=== PATIENT | male | born 1935 | race Caucasian/White ===

== ENCOUNTER 2017-06-10 12:58 | Inpatient (IN) | payer OTHER, BC ==
--- NOTE | 2017-06-10 13:56 | PDOC ---
History of Present Illness - History of Present Illness Initial Comments: 80-year-old male, history of CAD (s/p CABG 2 years prior), diabetes, Parkinson' s, ambulates with walker, presents with worsening gait disorder over the past few days and found down today by EMS. He has been progressively declining over the past two years since his CABG. The patient's was attempting to help him out of his chair earlier this morning and he was unable to stand up. He only occasionally follows commands and is only AO x2 at baseline but has been only AOx1 as of late. The son states that he originally called EMS only to help lift the patient into the chair but they brought him into the ED after getting some more history. Denies fevers, chills, chest pain, abdominal pain, urinary/ fecal incontinence. 06/10/17 17:06 <Frida Glaser - Last Filed: 06/10/17 20:10> <Richardson Talbot - Last Filed: 06/11/17 08:20> - General Chief Complaint: Injury Stated Complaint: AMS Time Seen by Provider: 06/10/17 13:31 Past History - Past Medical History Anemia: No Asthma: No Cancer: Yes (Colon Ca 1998) Cardiac Disorders: No CVA: No COPD: No CHF: No Dementia: No Diabetes: Yes (1981) GI Disorders: No Disorders: No HTN: Yes Hypercholesterolemia: Yes Liver Disease: No Seizures: No Thyroid Disease: No - Surgical History Abdominal Surgery: Yes (1998 Colon Resection) Appendectomy: No Cardiac Surgery: Yes (CABG 2014) Cholecystectomy: No Lung Surgery: No Neurologic Surgery: No Orthopedic Surgery: No - Immunization History Immunization Up to Date: Yes - Suicide/Smoking/Psychosocial Hx Smoking History: Unknown if ever smoked Have you smoked in the past 12 months: No Information on smoking cessation initiated: No Hx Alcohol Use: No Drug/Substance Use Hx: No Substance Use Type: None Hx Substance Use Treatment: No <Frida Glaser - Last Filed: 06/10/17 20:10> <Richardson Talbot - Last Filed: 06/11/17 08:20> - Past Medical History Allergies/Adverse Reactions: Allergies Allergy/AdvReac Type Severity Reaction Status Date / Time No Known Allergies Allergy Verified 03/14/16 13:33 Home Medications: Ambulatory Orders Metformin HCl [Glucophage -] 1,000 mg PO BID 02/11/12 Tamsulosin HCl [Flomax -] 0.4 mg PO DAILY 02/11/12 Simvastatin 40 mg PO HS #0 06/05/15 Acetaminophen [Tylenol] 650 mg PO Q6H #30 tablet 03/14/16 Carbidopa/Levodopa [Carbidopa-Levodopa 25-100 Tab] 1 each PO TID 03/14/16 Glimepiride [Amaryl -] 4 mg PO BID 03/14/16 Memantine HCl [Namenda Xr] 14 mg PO DAILY 03/14/16 Metoprolol Tartrate [Lopressor -] 50 mg PO BID 03/14/16 *Physical Exam - Vital Signs Last Vital Signs Temp Pulse Resp BP Pulse Ox 99.1 F 95 H 18 141/84 98 06/10/17 13:20 06/10/17 13:20 06/10/17 13:20 06/10/17 13:20 06/10/17 13:20 <Frida Glaser - Last Filed: 06/10/17 20:10> - Vital Signs Last Vital Signs Temp Pulse Resp BP Pulse Ox 97.4 F L 95 H 19 122/92 98 06/10/17 20:01 06/10/17 20:01 06/10/17 20:01 06/10/17 20:01 06/10/17 20:01 <Richardson Talbot - Last Filed: 06/11/17 08:20> ED Treatment Course - LABORATORY CBC & Chemistry Diagram: 06/10/17 14:25 06/10/17 14:25 <Frida Glaser - Last Filed: 06/10/17 20:10> - LABORATORY CBC & Chemistry Diagram: 06/10/17 14:25 06/10/17 14:25 - ADDITIONAL ORDERS Additional order review: Laboratory Results 06/10/17 06/10/17 06/10/17 17:20 14:48 14:25 PT with INR INR PTT (Actin FS) VBG pH POC VBG pCO2 POC VBG pO2 Mixed VBG HCO3 Sodium Potassium Chloride Carbon Dioxide Anion Gap BUN Creatinine Creat Clearance w eGFR Random Glucose Lactic Acid 1.7 Calcium Total Bilirubin AST ALT Alkaline Phosphatase Creatine Kinase Creatine Kinase Index CK-MB (CK-2) Troponin I Total Protein Albumin Urine Color Lt. yellow Urine Appearance Clear Urine pH 5.5 Ur Specific [place] 1.025 Urine Protein Negative Urine Glucose (UA) 3+ H Urine Ketones 2+ H Urine Blood Negative Urine Nitrite Negative Urine Bilirubin Negative Urine Urobilinogen 0.2 Ur Leukocyte Esterase Negative Blood Type A NEGATIVE Antibody Screen Negative 06/10/17 06/10/17 06/10/17 14:25 14:25 14:25 PT with INR INR PTT (Actin FS) VBG pH 7.40 POC VBG pCO2 47.9 POC VBG pO2 29.4 Mixed VBG HCO3 29.1 H Sodium 138 Potassium 4.4 Chloride 98 Carbon Dioxide 27 Anion Gap 13 BUN 16 Creatinine 0.7 Creat Clearance w eGFR > 60 Random Glucose 265 H D Lactic Acid 2.5 H* Calcium 9.2 Total Bilirubin 0.8 D AST 26 ALT 47 Alkaline Phosphatase 110 Creatine Kinase 543 H Creatine Kinase Index 0.4 CK-MB (CK-2) 2.645 Troponin I < 0.02 Total Protein 7.0 Albumin 3.7 Urine Color Urine Appearance Urine pH Ur Specific [place] Urine Protein Urine Glucose (UA) Urine Ketones Urine Blood Urine Nitrite Urine Bilirubin Urine Urobilinogen Ur Leukocyte Esterase Blood Type Antibody Screen 06/10/17 14:25 PT with INR 11.40 INR 1.01 PTT (Actin FS) 29.3 D VBG pH POC VBG pCO2 POC VBG pO2 Mixed VBG HCO3 Sodium Potassium Chloride Carbon Dioxide Anion Gap BUN Creatinine Creat Clearance w eGFR Random Glucose Lactic Acid Calcium Total Bilirubin AST ALT Alkaline Phosphatase Creatine Kinase Creatine Kinase Index CK-MB (CK-2) Troponin I Total Protein Albumin Urine Color Urine Appearance Urine pH Ur Specific [place] Urine Protein Urine Glucose (UA) Urine Ketones Urine Blood Urine Nitrite Urine Bilirubin Urine Urobilinogen Ur Leukocyte Esterase Blood Type Antibody Screen 06/10/17 14:25 RBC 5.02 MCV 92.7 MCHC 33.7 RDW 13.4 MPV 9.0 Neutrophils % 71.6 Lymphocytes % 18.6 D Monocytes % 9.0 Eosinophils % 0.2 Basophils % 0.6 - Medications Given in the ED: ED Medications Discontinued Medications Generic Name Dose Route Start Last Admin Trade Name Freq PRN Reason Stop Dose Admin Sodium Chloride 500 mls @ 500 mls/hr 06/10/17 17:04 06/10/17 17:06 Normal Saline - IV 06/10/17 18:03 500 mls/hr ASDIR STA Administration Sodium Chloride 500 ml 06/10/17 13:59 06/10/17 14:51 Normal Saline - IV 06/10/17 14:00 500 ml ONCE ONE Administration <Richardson Talbot - Last Filed: 06/11/17 08:20> *DC/Admit/Observation/Transfer <Frida Glaser - Last Filed: 06/10/17 20:10> - Discharge Dispostion Admit: Yes <Richardson Talbot - Last Filed: 06/11/17 08:20> Diagnosis at time of Disposition: Communicating hydrocephalus, Frequent falls
[2017-06-10] MEDS ORDERED: SODIUM CHLORIDE 0.9% 1000 ML INFUS.BAG IV ONE (13:59)
[2017-06-10 14:43] LABS: BASO % 0.6 % (0-2.0); EOS % 0.2 % (0-4.5); HEMATOCRIT 46.6 % (35.4-49); HEMOGLOBIN 15.7 GM/dL (11.7-16.9); LYMPH % 18.6 % (8-40); MCH 31.3 pg (25.7-33.7); MCHC 33.7 g/dl (32.0-35.9); MEAN CELL VOLUME 92.7 fl (80-96); NEUT % 71.6 % (42.8-82.8); PLATELET COUNT 155 K/MM3 (134-434); RBC 5.02 M/mm3 (4.00-5.60); RDW 13.4 % (11.9-15.9); WHITE BLOOD COUNT 9.5 K/mm3 (4.0-10.0)
[2017-06-10 14:45] LABS: VENOUS PC02 47.9 mmHg (38-52); VENOUS PH 7.4 (7.32-7.42); VENOUS PO2 29.4 mmHg (28-48)
[2017-06-10 14:52] LABS: INR 1.01 (0.82-1.09); PROTHROMBIN TIME (PATIENT) 11.4 SEC (9.98-11.88)
[2017-06-10 14:55] LABS: ACTIVATED PTT 29.3 SECONDS (26.9-34.4)
[2017-06-10 15:11] LABS: ALBUMIN 3.7 g/dl (3.4-5.0); ANION GAP 13 (8-16); BILIRUBIN,TOTAL 0.8 mg/dL (0.2-1.0); BLOOD UREA NITROGEN 16 mg/dL (7-18); CALCIUM 9.2 mg/dL (8.5-10.1); CHLORIDE 98 mmol/L (98-107); CO2 27 mmol/L (21-32); CREATININE 0.7 mg/dL (0.7-1.3); GLUCOSE,RANDOM 265 mg/dL (74-106); POTASSIUM 4.4 mmol/L (3.5-5.1); SGOT/AST 26 U/L (15-37); SGPT/ALT 47 U/L (12-78); SODIUM 138 mmol/L (136-145)
[2017-06-10 15:13] LABS: ALK PHOS 110 U/L (45-117)
[2017-06-10 15:37] LABS: PH,URINE 5.5 (5.0-8.0); URINE APPEARANCE CLEAR; URINE BILIRUBIN NEGATIVE (NEGATIVE); URINE BLOOD NEGATIVE (NEGATIVE); URINE COLOR LT. YELLOW; URINE GLUCOSE (UA) 3+ (NEGATIVE); URINE KETONE 2+ (NEGATIVE); URINE NITRITE NEGATIVE (NEGATIVE); URINE PROTEIN NEGATIVE (NEGATIVE); URINE UROBILINOGEN 0.2 mg/dL (0.2-1.0)
[2017-06-10] MEDS ORDERED: SODIUM CHLORIDE 500 ML IV STA (17:04)
[2017-06-10] MEDS ORDERED: HEMOQUE TEST 1 EACH EACH ONE (18:12)
--- NOTE | 2017-06-10 18:20 | PDOC ---
Attending Attestation - Resident Resident Name: Frida Glaser - ED Attending Attestation I have performed the following: I have examined & evaluated the patient, The case was reviewed & discussed with the resident, I agree w/resident's findings & plan, Exceptions are as noted - HPI HPI: 06/10/17 18:16 80-year-old male, history of CAD (s/p CABG 2 years prior), diabetes, Parkinson's , presents with left chest wall pain after falling 3 days ago. Pt also endorses pain in his left shoulder. He denies SOB. states that the patient fell in the bathtub 3 days ago. Pt denies lightheadedness/dizziness prior to fall. States that he tripped. Reports no head injury or LOC. Pt denies PONCE/N/V. Denies neck pain. Denies numbness/tingling/weakness in any extremity. The chest pain is not exertional or pleuritic and is reproducible with palpation. Pt denies any swelling in his legs, denies any prolonged immobility. No h/o DVT or PE. - Physicial Exam PE: 06/10/17 18:25 "GENERAL: Awake, alert, and fully oriented, in no acute distress HEAD: No signs of trauma EYES: PERRLA, EOMI, sclera anicteric, conjunctiva clear ENT: Auricles normal inspection, hearing grossly normal, nares patent, oropharynx clear without exudates. Moist mucosa NECK: Nontender, no stepoffs, Normal ROM, supple, no lymphadenopathy, JVD, or masses LUNGS: Breath sounds equal, clear to auscultation bilaterally. No wheezes, and no crackles HEART: Regular rate and rhythm, normal S1 and S2, no murmurs, rubs or gallops CHEST: L chest wall tenderness without crepitus ABDOMEN: Soft, nontender, normoactive bowel sounds. No guarding, no rebound. No masses EXTREMITIES: L shoulder with tenderness over humerus shaft. Normal range of motion, no edema. No clubbing or cyanosis. NEUROLOGICAL: Cranial nerves II through XII intact. 5/5 strength and sensation in all extremities, Normal speech, normal gait SKIN: Warm, Dry, normal turgor, no rashes or lesions noted. " - Medical Decision Making 06/10/17 18:29 81 M with chest wall pain s/p trip and fall 3 days ago. 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 Will consult neurology for recommendations given abnormal CTH and pt's history of falls. Pt signed out to oncoming attending at 7PM, pending neurology consultation. Case discussed in detail with oncoming Emergency Physician including history, physical exam and ancillary studies. Oncoming Emergency Physician has assumed care for the patient and will complete the evaluation and treatment. Patient is aware of the plan. Heart Score/ECG Review - ECG Impressions Comment:: 06/10/17 18:27 NSR, no IMAN/STDs, TWI in V1-V2 seen on prior EKG. RBBB and LAFB present also seen on prior EKG. No [place] prolongation.
[2017-06-10 18:36] LABS: URINE LEUK ESTERASE Negative (NEGATIVE)
--- NOTE | 2017-06-10 21:21 | HP ---
CHIEF COMPLAINT: Difficulty Ambulating, Memory Impairment, Frequent Falls PCP: Dr. Leon Ortega HISTORY OF PRESENT ILLNESS: This is a 81 y/o man with a past medical history of CAD (CABG, 2015), DM, Parkinson's. Who presents to the ED from home with decreased gait, memory loss, and recent falls. Patient fell twice last week, most recent was in the bathtub 3 days ago. Per ED records and family- The patient's was attempting to help him out of his chair earlier this morning and he was unable to stand up. He only occasionally follows commands and is only AO x2 at baseline but has been only AOx1 as of late. The son states that he originally called EMS only to help lift the patient into the chair but they brought him into the ED after getting some more history. In the ED the patient reported having L-shoulder and LCW pain. During my exam patient denies SOB, CP and palpations. Patient denies fever, chills, cough, dizziness, PONCE, AP, N/V/D, constipation, dysuria ER course was notable for: (1) CT Head- no acute ICH, mass effects or midline shift. Ventriculomegaly out of proportion to the degree of loss, bowing of the corpus callosum, crowding of the sulci-vertex. Suspicious for a communicating hydrocephalus. Age related volume loss, moderate to severe microvascular ischemic changes (2) Xray L- Shoulder- neg fx or dislocation (3) Lactic Acid- 2.5~1.7 (post fluid bolus) Recent Travel: None PAST MEDICAL HISTORY: See HPI PAST SURGICAL HISTORY: CABG Social History: Smoking: Unknown Alcohol: Unknown Drugs: Unknown Lives with Family History: Unable to obtain Allergies No Known Allergies Allergy (Verified 03/14/16 13:33) HOME MEDICATIONS: Home Medications Medication Instructions Recorded Metformin HCl [Glucophage -] 1,000 mg PO BID 02/11/12 Tamsulosin HCl [Flomax -] 0.4 mg PO DAILY 02/11/12 Simvastatin 40 mg PO HS #0 06/05/15 Acetaminophen [Tylenol] 650 mg PO Q6H #30 tablet 03/14/16 Carbidopa/Levodopa 1 each PO TID 03/14/16 [Carbidopa-Levodopa 25-100 Tab] Glimepiride [Amaryl -] 4 mg PO BID 03/14/16 Memantine HCl [Namenda Xr] 14 mg PO DAILY 03/14/16 Metoprolol Tartrate [Lopressor -] 50 mg PO BID 03/14/16 REVIEW OF SYSTEMS CONSTITUTIONAL: generalized weakness Absent: fever, chills, diaphoresis, malaise, loss of appetite, weight change HEENT: Absent: rhinorrhea, nasal congestion, throat pain, throat swelling, difficulty swallowing, mouth swelling, ear pain, eye pain, visual changes CARDIOVASCULAR: chest pain Absent: syncope, palpitations, irregular heart rate, lightheadedness, peripheral edema RESPIRATORY: Absent: cough, shortness of breath, dyspnea with exertion, orthopnea, wheezing, stridor, hemoptysis GASTROINTESTINAL: Absent: abdominal pain, abdominal distension, nausea, vomiting, diarrhea, constipation, melena, hematochezia GENITOURINARY: Absent: dysuria, frequency, urgency, hesitancy, hematuria, flank pain, genital pain MUSCULOSKELETAL: arthralgia, L-shoulder pain Absent: myalgia, joint swelling, back pain, neck pain SKIN: Absent: rash, itching, pallor HEMATOLOGIC/IMMUNOLOGIC: Absent: easy bleeding, easy bruising, lymphadenopathy, frequent infections ENDOCRINE: Absent: unexplained weight gain, unexplained weight loss, heat intolerance, cold intolerance NEUROLOGIC: unsteady gait, mental status changes Absent: headache, focal weakness or paresthesias, dizziness, unsteady gait, seizure, mental status changes, bladder or bowel incontinence PSYCHIATRIC: Absent: anxiety, depression, suicidal or homicidal ideation, hallucinations. PHYSICAL EXAMINATION Vital Signs - 24 hr 06/10/17 06/10/17 06/10/17 13:20 15:47 16:55 Temperature 99.1 F 98.9 F 98.7 F Pulse Rate 95 H 95 H Pulse Rate [ 79 Right Radial] Respiratory 18 18 Rate Blood Pressure 141/84 154/97 Blood Pressure 148/78 [Right Arm] O2 Sat by Pulse 98 100 98 Oximetry (%) 06/10/17 20:01 Temperature 97.4 F L Pulse Rate Pulse Rate [ 95 H Right Radial] Respiratory 19 Rate Blood Pressure Blood Pressure 122/92 [Right Arm] O2 Sat by Pulse 98 Oximetry (%) GENERAL: Awake, alert, and oriented to name/ only, in no acute distress. HEAD: Normal with no signs of trauma. EYES: Pupils equal, round and reactive to light, extraocular movements intact, sclera anicteric, No lid lag. conjunctiva injected, yellow crusting to eyelid, tearing EARS, NOSE, THROAT: Ears normal, nares patent, oropharynx clear without exudates. Dry mucous membranes. NECK: Normal range of motion, supple without lymphadenopathy, JVD, or masses. LUNGS: Breath sounds equal, clear to auscultation bilaterally. No wheezes, and no crackles. No accessory muscle use. HEART: Regular rate and rhythm, normal S1 and S2 without murmur, rub or gallop. ABDOMEN: Soft, nontender, not distended, normoactive bowel sounds, no guarding, no rebound, no masses. No hepatomegaly or splenomegaly. MUSCULOSKELETAL: Normal range of motion at all joints. No bony deformities or tenderness. No CVA tenderness. UPPER EXTREMITIES: 2+ pulses, warm, well-perfused. No cyanosis. No clubbing. No peripheral edema. LOWER EXTREMITIES: 2+ pulses, warm, well-perfused. No calf tenderness. No peripheral edema. NEUROLOGICAL: Cranial nerves II-XII intact. Slow-delay speech. Gait not observed. PSYCHIATRIC: Cooperative. Good eye contact. Appropriate mood and affect. SKIN: Warm, dry, normal turgor, normal capillary refill. redness to sacrum, rash to scrotum noted Laboratory Results - last 24 hr 06/10/17 06/10/17 06/10/17 14:25 14:25 14:25 WBC 9.5 D RBC 5.02 Hgb 15.7 Hct 46.6 MCV 92.7 MCH 31.3 MCHC 33.7 RDW 13.4 Plt Count 155 MPV 9.0 Neutrophils % 71.6 Lymphocytes % 18.6 D Monocytes % 9.0 Eosinophils % 0.2 Basophils % 0.6 PT with INR 11.40 INR 1.01 PTT (Actin FS) 29.3 D VBG pH 7.40 POC VBG pCO2 47.9 POC VBG pO2 29.4 Mixed VBG HCO3 29.1 H Sodium Potassium Chloride Carbon Dioxide Anion Gap BUN Creatinine Creat Clearance w eGFR Random Glucose Lactic Acid Calcium Total Bilirubin AST ALT Alkaline Phosphatase Creatine Kinase Creatine Kinase Index CK-MB (CK-2) Troponin I Total Protein Albumin Urine Color Urine Appearance Urine pH Ur Specific [place] Urine Protein Urine Glucose (UA) Urine Ketones Urine Blood Urine Nitrite Urine Bilirubin Urine Urobilinogen Ur Leukocyte Esterase Blood Type Antibody Screen 11/06/10/17 06/10/17 14:25 14:25 14:25 WBC RBC Hgb Hct MCV MCH MCHC RDW Plt Count MPV Neutrophils % Lymphocytes % Monocytes % Eosinophils % Basophils % PT with INR INR PTT (Actin FS) VBG pH POC VBG pCO2 POC VBG pO2 Mixed VBG HCO3 Sodium 138 Potassium 4.4 Chloride 98 Carbon Dioxide 27 Anion Gap 13 BUN 16 Creatinine 0.7 Creat Clearance w eGFR > 60 Random Glucose 265 H D Lactic Acid 2.5 H* Calcium 9.2 Total Bilirubin 0.8 D AST 26 ALT 47 Alkaline Phosphatase 110 Creatine Kinase 543 H Creatine Kinase Index 0.4 CK-MB (CK-2) 2.645 Troponin I < 0.02 Total Protein 7.0 Albumin 3.7 Urine Color Urine Appearance Urine pH Ur Specific [place] Urine Protein Urine Glucose (UA) Urine Ketones Urine Blood Urine Nitrite Urine Bilirubin Urine Urobilinogen Ur Leukocyte Esterase Blood Type A NEGATIVE Antibody Screen Negative 06/10/17 06/10/17 14:48 17:20 WBC RBC Hgb Hct MCV MCH MCHC RDW Plt Count MPV Neutrophils % Lymphocytes % Monocytes % Eosinophils % Basophils % PT with INR INR PTT (Actin FS) VBG pH POC VBG pCO2 POC VBG pO2 Mixed VBG HCO3 Sodium Potassium Chloride Carbon Dioxide Anion Gap BUN Creatinine Creat Clearance w eGFR Random Glucose Lactic Acid 1.7 Calcium Total Bilirubin AST ALT Alkaline Phosphatase Creatine Kinase Creatine Kinase Index CK-MB (CK-2) Troponin I Total Protein Albumin Urine Color Lt. yellow Urine Appearance Clear Urine pH 5.5 Ur Specific [place] 1.025 Urine Protein Negative Urine Glucose (UA) 3+ H Urine Ketones 2+ H Urine Blood Negative Urine Nitrite Negative Urine Bilirubin Negative Urine Urobilinogen 0.2 Ur Leukocyte Esterase Negative Blood Type Antibody Screen ASSESSMENT/PLAN: This is a 81 y/o man with a PMHx of: CAD (s/p CABG), DM, Parkinson's Disease. Admitted for Communicating Hydrocephalus, Difficulty Ambulating, Frequent Falls. 1. Communicating Hydrocephalus - Likely Idiopathic vs SAH vs Head Trauma vs Meningitis - CT Head reviewed - Appreciate Neurology Consult - Neuro checks - Fall precautions - NPO - Maintain HOB elevated 30 degrees 2. Difficulty Ambulating// Frequent Falls - See above - PT eval - Fall Precautions - Consider Subacute Rehab or SNF upon d/c 3. Lactic Acidemia - Likely Type B Lactic Acidosis - No Leukocytosis or neutrophilia - LA 2.5~1.7 - Hold Metformin 4. CAD - s/p CABG - Continue home meds with parameters - EKG reviewed - Trop I negx1 5. Chest Pain - Likely muscular vs Trauma secondary to falls - Serial Enzymes - EKG reviewed - Patient currently denies CP or SOB 6. L- Shoulder Pain - Xray L- shoulder- neg fx or dislocation - Continue supportive care 7. Diabetes Mellitus - Uncontrolled - BGMs - ISS - Hold Metformin secondary to Type B LA - Will hold home meds for tighter glycemic control - HgbA1C in am 8. Conjunctivitis - Likely bacterial vs viral vs allergic - Will treat empirically with Tobramycin 9. FEN - NS@42cc/hr - Replete lytes prn - NPO until cleared by Neuro 10. DVT Prophylaxis - SCDs - Heparin SQ Code Status: Full Code Dispo: Requires Inpatient Care Problem List - Problem (1) Communicating hydrocephalus Code(s): G91.0 - COMMUNICATING HYDROCEPHALUS (2) Frequent falls Code(s): R29.6 - REPEATED FALLS (3) Conjunctivitis Code(s): H10.9 - UNSPECIFIED CONJUNCTIVITIS (4) CAD (coronary artery disease) Code(s): I25.10 - ATHSCL HEART DISEASE OF [place] CORONARY ARTERY W/O ANG PCTRS (5) Afib Code(s): I48.91 - UNSPECIFIED ATRIAL FIBRILLATION (6) Anemia Code(s): D64.9 - ANEMIA, UNSPECIFIED (7) Diabetes Code(s): E11.9 - TYPE 2 DIABETES MELLITUS WITHOUT COMPLICATIONS (8) DVT prophylaxis Code(s): WVH4909 - Visit type - Emergency Visit Emergency Visit: Yes ED Registration Date: 06/10/17 Care time: The patient presented to the Emergency Department on the above date and was hospitalized for further evaluation of their emergent condition. - New Patient This patient is new to me today: Yes Date on this admission: 06/10/17 - Critical Care Critical Care patient: No
[2017-06-10] MEDS: HEPARIN NA (PORCINE) 5,000 UNITS/ML 1ML VIAL SQ SCH (22:54)
[2017-06-10] MEDS: ATORVASTATIN CA 20 MG TABLET (FP) PO SCH (22:55)
[2017-06-10] MEDS: METOPROLOL TARTRATE 50 MG TABLET (FP) PO SCH (22:55)
[2017-06-10] MEDS: CARBIDOPA/LEVODOPA 25/100 TABLET (FP) PO SCH (22:55)
[2017-06-11 03:58] VITALS: BMI 26.0
[2017-06-11] MEDS: CARBIDOPA/LEVODOPA 25/100 TABLET (FP) PO SCH ×3 (05:59→22:57)
[2017-06-11] MEDS: TOBRAMYCIN 0.3% OPHTH SOLN 5 ML BOTTLE OU SCH ×3 (06:40→17:59)
[2017-06-11] MEDS: SODIUM CHLORIDE 1,000 ML IV SCH (06:46)
[2017-06-11] MEDS: INSULIN SLIDING SCALE (NOVOLOG) 1 VIAL SQ SCH ×3 (06:47→17:21)
[2017-06-11 08:52] LABS: BASO % 0.9 % (0-2.0); EOS % 1.5 % (0-4.5); HEMATOCRIT 41.3 % (35.4-49); HEMOGLOBIN 14.3 GM/dL (11.7-16.9); LYMPH % 37.5 % (8-40); MCH 31.8 pg (25.7-33.7); MCHC 34.5 g/dl (32.0-35.9); MEAN CELL VOLUME 91.9 fl (80-96); MEAN PLT VOLUME 8.9 fl (7.5-11.1); MONO % 9.4 % (3.8-10.2); NEUT % 50.7 % (42.8-82.8); PLATELET COUNT 157 K/MM3 (134-434); RDW 12.9 % (11.9-15.9); WHITE BLOOD COUNT 7.2 K/mm3 (4.0-10.0)
[2017-06-11 09:09] LABS: ANION GAP 7 (8-16); BLOOD UREA NITROGEN 11 mg/dL (7-18); CALCIUM 8.4 mg/dL (8.5-10.1); CHLORIDE 100 mmol/L (98-107); CO2 30 mmol/L (21-32); GLUCOSE,RANDOM 234 mg/dL (74-106); MAGNESIUM 1.5 mg/dL (1.8-2.4); POTASSIUM 3.9 mmol/L (3.5-5.1); SODIUM 137 mmol/L (136-145)
[2017-06-11 09:10] LABS: CREATININE 0.6 mg/dL (0.7-1.3); PHOSPHOROUS 2.5 mg/dL (2.5-4.9)
[2017-06-11] MEDS: HEPARIN NA (PORCINE) 5,000 UNITS/ML 1ML VIAL SQ SCH ×2 (09:22→22:57)
[2017-06-11] MEDS: METOPROLOL TARTRATE 50 MG TABLET (FP) PO SCH ×2 (09:22→22:57)
[2017-06-11] MEDS: TAMSULOSIN HCL 0.4 MG CAP.ER.24H (FP) PO SCH (09:22)
[2017-06-11] MEDS ORDERED: PATIENT'S OWN MEDICATION (NON-FORMULARY) (Memantine Hcl [Namenda Xr] 14 MG) PO SCH (10:00)
[2017-06-11] MEDS ORDERED: PT OWN MED DRAWER 7, Y5N ONE (12:27)
--- NOTE | 2017-06-11 12:56 | EKG ---
Test Reason : Blood Pressure : / mmHG Vent. Rate : 091 BPM Atrial Rate : 091 BPM P-R Int : 178 ms QRS Dur : 136 ms QT Int : 414 ms P-R-T Axes : 062 -72 066 degrees QTc Int : 509 ms NORMAL SINUS RHYTHM POSSIBLE LEFT ATRIAL ENLARGEMENT RIGHT BUNDLE BRANCH BLOCK LEFT ANTERIOR FASCICULAR BLOCK BIFASCICULAR BLOCK LEFT VENTRICULAR HYPERTROPHY WITH REPOLARIZATION ABNORMALITY ABNORMAL ECG WHEN COMPARED WITH ECG OF 02-JUN-2015 04:25, NO SIGNIFICANT CHANGE WAS FOUND Confirmed by GUZMAN HERNANDEZ MD ([id number]) on 06/11/2017 12:56:12 PM Referred By: Confirmed By:GUZMAN HERNANDEZ MD
--- NOTE | 2017-06-11 13:28 | CONSULT ---
Admitting History and Physical - Primary Care Physician PCP: Taylor Leiva - Admission History of Present Illness: This is a 81 y/o man with a PMHx of: CAD (s/p CABG), DM, Parkinson's Disease. Admitted for Communicating Hydrocephalus, Difficulty Ambulating, Frequent Falls. Pt had swallowing tx at [facility] previously, and was on thickened liquids. Family d /c'd thickener as pt refused to drink the thick liquids. They deny h/o PNA but state that he "coughs all the time while eating soft, cut up food and thin liquids. " History Source: Family Member, Medical Record Limitations to Obtaining History: Poor Historian - Past Medical History Cardiovascular: Yes: CAD, CHF, HTN, Hyperlipdemia Endocrine: Yes: Diabetes Mellitus. No: Manuel's Disease, Nelida's Disease, Hyperparathyroidism, Hyperthyroidism, Hypothyroidism, Osteopenia, SIADH, Other - Smoking History Smoking history: Unknown if ever smoked Have you smoked in the past 12 months: No - Alcohol/Substance Use Hx Alcohol Use: No History - Admission Reason For Visit: COMMUNICATING HYDROCEPHALUS,RECURRENT FALLS - Diagnostics X-ray: Report Reviewed ((-)) CT Scan: Report Reviewed (CT Head- no acute ICH, mass effects or midline shift. Ventriculomegaly out of proportion to the degree of loss, bowing of the corpus callosum, crowding of the sulci-vertex. Suspicious for a communicating hydrocephalus. Age related volume loss, moderate to severe microvascular ischemic changes) - General Mental Status: Awake and Alert, Able to Follow Commands, Forgetful, Vague, Intermittently Confused (Denies being in hospital.) Attention: Distractible Ability to Follow Directions: Fair Head/Neck Control: Fair - Hearing Hearing: Impaired Hearing Aide: No Speech Evaluation - Communication Primary Language: FRENCH Secondary Language: HEBREW Communication: Yes: Simple Responses, Dysarthria - Speech Production Dysarthria: Yes: Hypokinetic Able to Make Needs Known: Yes: Mildly Impaired Intelligibility: Yes: Mildly Impaired - Speech Characteristics Voice Loudness: Normal Voice Pitch: Yes: Normal Voice Phonatory-based Quality: Yes: Dysphonia, Vocal Wetness (frequent cough, suspect on secretions) Speech Clarity: < 75% Nasal Resonance: Normal Articulation: Yes: Imprecise (mild) - Language/Auditory Comprehension Follows: Yes: 1 Stage Simple Commands - Language/Verbal Expression Able to Respond to Simple Queries: Yes: Mildly Impaired Able to Communicate Wants and Needs: Yes: Mildly Impaired Functional Communication Status: Yes: Mildly Impaired - Swallow Evaluation/Bedside Assessment Current Nutritional Intake: NPO Dentition: Yes: Adequate, Missing Teeth Facial Symmetry at Rest: Symmetrical Jaw Position: Open at Rest Against Resistance Opening: Weak Against Resistance Closing: Weak Pucker Lips: Weak Smile: Weak Lingual Movement: Symmetric Lingual Speed of Movement: Reduced Lingual Movement Strgth Against Opposition: Reduced Velopharyngeal Movement: Normal Laryngeal Movement: Labored,delay initiation Rate of Intake: WFL Labial Seal: WFL Timing of Swallow: Delayed Coughing/Throat Clear: Yes (on secretions, not sips of water) Recommendations - Speech Evaluation, Impression/Plan Impression: Suspect aspiration on secretions and possibly thin liquid. - Disposition Discharge to: To be Determined - Dysphagia Impressions/Plan Swallowing Skills: Impaired Dysphagia Impressions: Ongoing Evaluation *Silent aspiration: cannot be R/O at bedside Recommendations: Modified Barium Swallow
[2017-06-11] MEDS ORDERED: FLU VACCINE QUAD 60 MCG/0.5 ML (MDV 17-18) IM ONE (13:50)
--- NOTE | 2017-06-11 14:17 | PN ---
Progress Note (short form) - Note Progress Note: Patient seen today in his his room spoke with family admitted with weakness and frequent falls and AMS As per family patient is looking better than yesterday have c/o cough, clearing throat h/o parkinsons, follows dr calhoun out patient h/o swallowing difficulty in the past and used to be on thickened liquids CT head noted- neurology evaluation pending Vital Signs Temp 97.3 F L 06/11/17 09:00 Pulse 76 06/11/17 09:00 Resp 20 06/11/17 09:00 BP 126/73 06/11/17 09:00 Pulse Ox 99 06/11/17 02:30 Intake & Output 06/10/17 06/11/17 06/11/17 23:59 11:59 23:59 Intake Total 82 Balance 82 Weight 171 lb 4 oz 171 lb 6.4 oz Intake: IV 82 Normal Saline - 1,000 ml 82 @ 42 mls/hr IV ASDIR [facility] Rx#:[id number] IVPB 0 Other: Voiding Method Diaper # Unmeasured Voids Void 2 Bowel Movement No Height 5 ft 8 in 5 ft 8 in Body Mass Index (BMI) 25.8 26.0 Weight Measurement Method Patient Lift Scale Patient Lift Scale Weight Measurement Method Est/Stated by Patient Laboratory Results - last 24 hr 06/10/17 06/10/17 06/10/17 14:25 14:25 14:25 WBC 9.5 D RBC 5.02 Hgb 15.7 Hct 46.6 MCV 92.7 MCH 31.3 MCHC 33.7 RDW 13.4 Plt Count 155 MPV 9.0 Neutrophils % 71.6 Lymphocytes % 18.6 D Monocytes % 9.0 Eosinophils % 0.2 Basophils % 0.6 PT with INR 11.40 INR 1.01 PTT (Actin FS) 29.3 D VBG pH 7.40 POC VBG pCO2 47.9 POC VBG pO2 29.4 Mixed VBG HCO3 29.1 H Sodium Potassium Chloride Carbon Dioxide Anion Gap BUN Creatinine Creat Clearance w eGFR POC Glucometer Random Glucose Hemoglobin A1c % Lactic Acid Calcium Phosphorus Magnesium Total Bilirubin AST ALT Alkaline Phosphatase Creatine Kinase Creatine Kinase Index CK-MB (CK-2) Troponin I Total Protein Albumin Urine Color Urine Appearance Urine pH Ur Specific [place] Urine Protein Urine Glucose (UA) Urine Ketones Urine Blood Urine Nitrite Urine Bilirubin Urine Urobilinogen Ur Leukocyte Esterase Blood Type Antibody Screen 06/10/17 06/10/17 06/10/17 14:25 14:25 14:25 WBC RBC Hgb Hct MCV MCH MCHC RDW Plt Count MPV Neutrophils % Lymphocytes % Monocytes % Eosinophils % Basophils % PT with INR INR PTT (Actin FS) VBG pH POC VBG pCO2 POC VBG pO2 Mixed VBG HCO3 Sodium 138 Potassium 4.4 Chloride 98 Carbon Dioxide 27 Anion Gap 13 BUN 16 Creatinine 0.7 Creat Clearance w eGFR > 60 POC Glucometer Random Glucose 265 H D Hemoglobin A1c % Lactic Acid 2.5 H* Calcium 9.2 Phosphorus Magnesium Total Bilirubin 0.8 D AST 26 ALT 47 Alkaline Phosphatase 110 Creatine Kinase 543 H Creatine Kinase Index 0.4 CK-MB (CK-2) 2.645 Troponin I < 0.02 Total Protein 7.0 Albumin 3.7 Urine Color Urine Appearance Urine pH Ur Specific [place] Urine Protein Urine Glucose (UA) Urine Ketones Urine Blood Urine Nitrite Urine Bilirubin Urine Urobilinogen Ur Leukocyte Esterase Blood Type A NEGATIVE Antibody Screen Negative 06/10/17 06/10/17 06/11/17 14:48 17:20 06:00 WBC RBC Hgb Hct MCV MCH MCHC RDW Plt Count MPV Neutrophils % Lymphocytes % Monocytes % Eosinophils % Basophils % PT with INR INR PTT (Actin FS) VBG pH POC VBG pCO2 POC VBG pO2 Mixed VBG HCO3 Sodium Potassium Chloride Carbon Dioxide Anion Gap BUN Creatinine Creat Clearance w eGFR POC Glucometer Random Glucose Hemoglobin A1c % Lactic Acid 1.7 Calcium Phosphorus Magnesium Total Bilirubin AST ALT Alkaline Phosphatase Creatine Kinase Creatine Kinase Index CK-MB (CK-2) Troponin I Cancelled Total Protein Albumin Urine Color Lt. yellow Urine Appearance Clear Urine pH 5.5 Ur Specific [place] 1.025 Urine Protein Negative Urine Glucose (UA) 3+ H Urine Ketones 2+ H Urine Blood Negative Urine Nitrite Negative Urine Bilirubin Negative Urine Urobilinogen 0.2 Ur Leukocyte Esterase Negative Blood Type Antibody Screen 06/11/17 06/11/17 06/11/17 06:45 08:00 08:00 WBC 7.2 RBC 4.50 Hgb 14.3 Hct 41.3 MCV 91.9 MCH 31.8 MCHC 34.5 RDW 12.9 Plt Count 157 MPV 8.9 Neutrophils % 50.7 D Lymphocytes % 37.5 D Monocytes % 9.4 Eosinophils % 1.5 D Basophils % 0.9 PT with INR INR PTT (Actin FS) VBG pH POC VBG pCO2 POC VBG pO2 Mixed VBG HCO3 Sodium 137 Potassium 3.9 Chloride 100 Carbon Dioxide 30 Anion Gap 7 L BUN 11 D Creatinine 0.6 L Creat Clearance w eGFR POC Glucometer 243 Random Glucose 234 H Hemoglobin A1c % Lactic Acid Calcium 8.4 L Phosphorus 2.5 Magnesium 1.5 L Total Bilirubin AST ALT Alkaline Phosphatase Creatine Kinase Creatine Kinase Index CK-MB (CK-2) Troponin I 0.02 Total Protein Albumin Urine Color Urine Appearance Urine pH Ur Specific [place] Urine Protein Urine Glucose (UA) Urine Ketones Urine Blood Urine Nitrite Urine Bilirubin Urine Urobilinogen Ur Leukocyte Esterase Blood Type Antibody Screen 06/11/17 06/11/17 06/11/17 08:00 11:37 12:21 WBC RBC Hgb Hct MCV MCH MCHC RDW Plt Count MPV Neutrophils % Lymphocytes % Monocytes % Eosinophils % Basophils % PT with INR INR PTT (Actin FS) VBG pH POC VBG pCO2 POC VBG pO2 Mixed VBG HCO3 Sodium Potassium Chloride Carbon Dioxide Anion Gap BUN Creatinine Creat Clearance w eGFR POC Glucometer 169 Random Glucose Hemoglobin A1c % 9.2 H D Lactic Acid Calcium Phosphorus Magnesium Total Bilirubin AST ALT Alkaline Phosphatase Creatine Kinase Creatine Kinase Index CK-MB (CK-2) Troponin I 0.02 Total Protein Albumin Urine Color Urine Appearance Urine pH Ur Specific [place] Urine Protein Urine Glucose (UA) Urine Ketones Urine Blood Urine Nitrite Urine Bilirubin Urine Urobilinogen Ur Leukocyte Esterase Blood Type Antibody Screen Active Medications Atorvastatin Calcium (Lipitor -) 20 mg PO HS [facility] Last Admin: 06/10/17 22:55 Dose: 20 mg Carbidopa/Levodopa (Sinemet 25/100 -) 1 each PO TID [facility] Last Admin: 06/11/17 05:59 Dose: 1 each Heparin Sodium (Porcine) (Heparin -) 5,000 unit SQ BID [facility] Last Admin: 06/11/17 09:22 Dose: 5,000 unit Sodium Chloride (Normal Saline -) 1,000 mls @ 42 mls/hr IV ASDIR [facility] Last Admin: 06/11/17 06:46 Dose: 42 mls/hr Influenza Virus Vaccine Quadrival (Flulaval Quad [id number]) 60 mcg IM .ONCE ONE Stop: 06/11/17 13:51 Insulin Aspart (Novolog Vial Sliding Scale -) 1 vial SQ TIDAC [facility] PRN Reason: Protocol Last Admin: 06/11/17 13:20 Dose: Not Given Metoprolol Tartrate (Lopressor -) 50 mg PO BID [facility] Last Admin: 06/11/17 09:22 Dose: 50 mg Non-Formulary Medication (Memantine Hcl [Namenda Xr]) 14 mg PO DAILY [facility] Tamsulosin HCl (Flomax -) 0.4 mg PO DAILY@0830 [facility] Last Admin: 06/11/17 09:22 Dose: 0.4 mg Tobramycin Sulfate (Tobrex Ophthalmic Solution -) 1 drop OU Q6H [facility] Last Admin: 06/11/17 12:29 Dose: 1 drop N- alert, awake, following commands, moving all extremities UE-stiff [id number] lungs-clear, no wheezing, no rhonchi coughing+ abd-obese, NT, ND le- No edema plan parkinsons disease Communicating hydrocephalus frequent falls AMS-Blood cultures pending afebrile, not appears to be infectious source CXR- noted but with high risk of aspiration swallow evaluation- neurology evalution pending IVF niddm-novolog sliding scale, d/c metformin [elevated lactic acid] CAD- trroponins trending down -BB hypomagnesemia- replace DVT ppx- Heparin sq Problem List - Problems (1) Frequent falls Code(s): R29.6 - REPEATED FALLS (2) CAD (coronary artery disease) Code(s): I25.10 - ATHSCL HEART DISEASE OF [place] CORONARY ARTERY W/O ANG PCTRS (3) Diabetes Code(s): E11.9 - TYPE 2 DIABETES MELLITUS WITHOUT COMPLICATIONS (4) Communicating hydrocephalus Code(s): G91.0 - COMMUNICATING HYDROCEPHALUS (5) Dysphagia Code(s): R13.10 - DYSPHAGIA, UNSPECIFIED
--- NOTE | 2017-06-11 14:22 | PN ---
Progress Note (short form) - Note Progress Note: pt examined alongside with [employer] Soraya family at bedside Events noted Pt admitted for AMS, frequent falls As per , today pt looks better He swallowed his pills fine but has been coughing for awhile now Vital Signs - 24 hr 06/10/17 06/10/17 06/10/17 15:47 16:55 20:01 Temperature 98.9 F 98.7 F 97.4 F L Pulse Rate 95 H Pulse Rate [ 79 95 H Right Radial] Respiratory 18 19 Rate Blood Pressure 154/97 Blood Pressure 148/78 122/92 [Right Arm] O2 Sat by Pulse 100 98 98 Oximetry (%) 06/10/17 06/10/17 06/11/17 22:07 23:43 02:30 Temperature 98.7 F 97.8 F Pulse Rate 69 Pulse Rate [ 92 H Right Radial] Respiratory 18 18 20 Rate Blood Pressure 123/74 Blood Pressure 119/57 [Right Arm] O2 Sat by Pulse 96 96 99 Oximetry (%) 06/11/17 06/11/17 06:00 09:00 Temperature 97.6 F 97.3 F L Pulse Rate 91 H 76 Pulse Rate [ Right Radial] Respiratory 20 20 Rate Blood Pressure 119/88 126/73 Blood Pressure [Right Arm] O2 Sat by Pulse Oximetry (%) Current Medications Generic Name Dose Route Start Last Admin Trade Name Freq PRN Reason Stop Dose Admin Atorvastatin Calcium 20 mg 06/10/17 22:00 06/10/17 22:55 Lipitor - PO 20 mg HS [facility] Administration Carbidopa/Levodopa 1 each 06/10/17 22:00 06/11/17 05:59 Sinemet 25/100 - PO 1 each TID [facility] Administration Heparin Sodium (Porcine) 5,000 unit 06/10/17 22:00 06/11/17 09:22 Heparin - SQ 5,000 unit BID [facility] Administration Sodium Chloride 1,000 mls @ 42 mls/hr 06/11/17 05:15 06/11/17 06:46 Normal Saline - IV 42 mls/hr [facility]IR [facility] Administration Influenza Virus Vaccine Quadrival 60 mcg 06/11/17 13:50 Flulaval Quad [id number] IM 06/11/17 13:51 .ONCE ONE Insulin Aspart 1 vial 06/11/17 07:00 06/11/17 13:20 Novolog Vial Sliding Scale - SQ Not Given TIDAC [facility] Protocol Metoprolol Tartrate 50 mg 06/10/17 22:00 06/11/17 09:22 Lopressor - PO 50 mg BID [facility] Administration Non-Formulary Medication 14 mg 06/11/17 10:00 Memantine Hcl [Namenda Xr] PO DAILY [facility] Tamsulosin HCl 0.4 mg 06/11/17 08:30 06/11/17 09:22 Flomax - PO 0.4 mg DAILY@0830 [facility] Administration Tobramycin Sulfate 1 drop 06/11/17 06:30 06/11/17 12:29 Tobrex Ophthalmic Solution - OU 1 drop Q6H [facility] Administration Laboratory Results - last 24 hr 06/10/17 06/10/17 06/10/17 14:25 14:25 14:25 WBC 9.5 D RBC 5.02 Hgb 15.7 Hct 46.6 MCV 92.7 MCH 31.3 MCHC 33.7 RDW 13.4 Plt Count 155 MPV 9.0 Neutrophils % 71.6 Lymphocytes % 18.6 D Monocytes % 9.0 Eosinophils % 0.2 Basophils % 0.6 PT with INR 11.40 INR 1.01 PTT (Actin FS) 29.3 D VBG pH 7.40 POC VBG pCO2 47.9 POC VBG pO2 29.4 Mixed VBG HCO3 29.1 H Sodium Potassium Chloride Carbon Dioxide Anion Gap BUN Creatinine Creat Clearance w eGFR POC Glucometer Random Glucose Hemoglobin A1c % Lactic Acid Calcium Phosphorus Magnesium Total Bilirubin AST ALT Alkaline Phosphatase Creatine Kinase Creatine Kinase Index CK-MB (CK-2) Troponin I Total Protein Albumin Urine Color Urine Appearance Urine pH Ur Specific [place] Urine Protein Urine Glucose (UA) Urine Ketones Urine Blood Urine Nitrite Urine Bilirubin Urine Urobilinogen Ur Leukocyte Esterase Blood Type Antibody Screen 06/10/17 06/10/17 06/10/17 14:25 14:25 14:25 WBC RBC Hgb Hct MCV MCH MCHC RDW Plt Count MPV Neutrophils % Lymphocytes % Monocytes % Eosinophils % Basophils % PT with INR INR PTT (Actin FS) VBG pH POC VBG pCO2 POC VBG pO2 Mixed VBG HCO3 Sodium 138 Potassium 4.4 Chloride 98 Carbon Dioxide 27 Anion Gap 13 BUN 16 Creatinine 0.7 Creat Clearance w eGFR > 60 POC Glucometer Random Glucose 265 H D Hemoglobin A1c % Lactic Acid 2.5 H* Calcium 9.2 Phosphorus Magnesium Total Bilirubin 0.8 D AST 26 ALT 47 Alkaline Phosphatase 110 Creatine Kinase 543 H Creatine Kinase Index 0.4 CK-MB (CK-2) 2.645 Troponin I < 0.02 Total Protein 7.0 Albumin 3.7 Urine Color Urine Appearance Urine pH Ur Specific [place] Urine Protein Urine Glucose (UA) Urine Ketones Urine Blood Urine Nitrite Urine Bilirubin Urine Urobilinogen Ur Leukocyte Esterase Blood Type A NEGATIVE Antibody Screen Negative 06/10/17 06/10/17 06/11/17 14:48 17:20 06:00 WBC RBC Hgb Hct MCV MCH MCHC RDW Plt Count MPV Neutrophils % Lymphocytes % Monocytes % Eosinophils % Basophils % PT with INR INR PTT (Actin FS) VBG pH POC VBG pCO2 POC VBG pO2 Mixed VBG HCO3 Sodium Potassium Chloride Carbon Dioxide Anion Gap BUN Creatinine Creat Clearance w eGFR POC Glucometer Random Glucose Hemoglobin A1c % Lactic Acid 1.7 Calcium Phosphorus Magnesium Total Bilirubin AST ALT Alkaline Phosphatase Creatine Kinase Creatine Kinase Index CK-MB (CK-2) Troponin I Cancelled Total Protein Albumin Urine Color Lt. yellow Urine Appearance Clear Urine pH 5.5 Ur Specific [place] 1.025 Urine Protein Negative Urine Glucose (UA) 3+ H Urine Ketones 2+ H Urine Blood Negative Urine Nitrite Negative Urine Bilirubin Negative Urine Urobilinogen 0.2 Ur Leukocyte Esterase Negative Blood Type Antibody Screen 06/11/17 06/11/17 06/11/17 06:45 08:00 08:00 WBC 7.2 RBC 4.50 Hgb 14.3 Hct 41.3 MCV 91.9 MCH 31.8 MCHC 34.5 RDW 12.9 Plt Count 157 MPV 8.9 Neutrophils % 50.7 D Lymphocytes % 37.5 D Monocytes % 9.4 Eosinophils % 1.5 D Basophils % 0.9 PT with INR INR PTT (Actin FS) VBG pH POC VBG pCO2 POC VBG pO2 Mixed VBG HCO3 Sodium 137 Potassium 3.9 Chloride 100 Carbon Dioxide 30 Anion Gap 7 L BUN 11 D Creatinine 0.6 L Creat Clearance w eGFR POC Glucometer 243 Random Glucose 234 H Hemoglobin A1c % Lactic Acid Calcium 8.4 L Phosphorus 2.5 Magnesium 1.5 L Total Bilirubin AST ALT Alkaline Phosphatase Creatine Kinase Creatine Kinase Index CK-MB (CK-2) Troponin I 0.02 Total Protein Albumin Urine Color Urine Appearance Urine pH Ur Specific [place] Urine Protein Urine Glucose (UA) Urine Ketones Urine Blood Urine Nitrite Urine Bilirubin Urine Urobilinogen Ur Leukocyte Esterase Blood Type Antibody Screen 06/11/17 06/11/17 06/11/17 08:00 11:37 12:21 WBC RBC Hgb Hct MCV MCH MCHC RDW Plt Count MPV Neutrophils % Lymphocytes % Monocytes % Eosinophils % Basophils % PT with INR INR PTT (Actin FS) VBG pH POC VBG pCO2 POC VBG pO2 Mixed VBG HCO3 Sodium Potassium Chloride Carbon Dioxide Anion Gap BUN Creatinine Creat Clearance w eGFR POC Glucometer 169 Random Glucose Hemoglobin A1c % 9.2 H D Lactic Acid Calcium Phosphorus Magnesium Total Bilirubin AST ALT Alkaline Phosphatase Creatine Kinase Creatine Kinase Index CK-MB (CK-2) Troponin I 0.02 Total Protein Albumin Urine Color Urine Appearance Urine pH Ur Specific [place] Urine Protein Urine Glucose (UA) Urine Ketones Urine Blood Urine Nitrite Urine Bilirubin Urine Urobilinogen Ur Leukocyte Esterase Blood Type Antibody Screen S1 s2 RRR Lungs clear Abd- soft, NT No edema Pt appears to be clearing his throat when coughing generalized stiffness awake and alert follows simple commands PLAN No infectious source noted, blood cultures pending continue with iv fluids replace magnesium swallow eval Neurology eval pending [facility] [place] today
[2017-06-11] MEDS ORDERED: MAGNESIUM SULF 50% (8.12 MEQ/2 ML-1 GM VIAL) IVPB ONE (14:31)
[2017-06-11] MEDS: ATORVASTATIN CA 20 MG TABLET (FP) PO SCH (22:57)
--- NOTE | 2017-06-11 23:13 | HOSP ---
Subjective - Review of Symptoms Events since last encounter: Hospitalist Encounter Notified by RN of change in mental status. Arrived to bedside, patient is lethargic, barely responsive to verbal or tactile stimulus. Not moving R-side of body Code Chávez called A/P Acute Stroke symptoms Stat Head CT Transfer to Telemetry HOB elevated Continue Neuro checks NPO Continue to monitor Neurological: Yes: Other (Change in mental status) Physical Examination Vital Signs: Vital Signs Temperature 97.7 F 06/11/17 18:00 Pulse Rate 76 06/11/17 18:00 Respiratory Rate 18 06/11/17 18:00 Blood Pressure 110/59 06/11/17 18:00 O2 Sat by Pulse Oximetry (%) 98 06/11/17 09:00 Neurological: Yes: Dysarthria, Lethargy, Weakness (R-sided) Labs: CBC, BMP 06/11/17 08:00 06/11/17 08:00 Troponin, BNP 06/11/17 06/11/17 06/11/17 06:00 08:00 12:21 Troponin I Cancelled 0.02 0.02 Intake & Output 06/08/17 06/09/17 06/10/17 06/11/17 23:59 23:59 23:59 23:59 Intake Total 682 Balance 682 Weight 77.678 kg 77.746 kg Current Medications Generic Name Dose Route Start Last Admin Trade Name Freq PRN Reason Stop Dose Admin Atorvastatin Calcium 20 mg 06/10/17 22:00 06/11/17 22:57 Lipitor - PO 20 mg HS [facility] Administration Carbidopa/Levodopa 1 each 06/10/17 22:00 06/11/17 22:57 Sinemet 25/100 - PO 1 each TID [facility] Administration Heparin Sodium (Porcine) 5,000 unit 06/10/17 22:00 06/11/17 22:57 Heparin - SQ 5,000 unit BID [facility] Administration Sodium Chloride 1,000 mls @ 42 mls/hr 06/11/17 05:15 06/11/17 06:46 Normal Saline - IV 42 mls/hr ASDIR [facility] Administration Insulin Aspart 1 vial 06/11/17 07:00 06/11/17 17:21 Novolog Vial Sliding Scale - SQ 6 units TIDAC [facility] Administration Protocol Metoprolol Tartrate 50 mg 06/10/17 22:00 06/11/17 22:57 Lopressor - PO 50 mg BID [facility] Administration Non-Formulary Medication 14 mg 06/11/17 10:00 Memantine Hcl [Namenda Xr] PO DAILY [facility] Tamsulosin HCl 0.4 mg 06/11/17 08:30 06/11/17 09:22 Flomax - PO 0.4 mg DAILY@0830 [facility] Administration Tobramycin Sulfate 1 drop 06/11/17 06:30 06/11/17 17:59 Tobrex Ophthalmic Solution - OU 1 drop Q6H [facility] Administration Critical Care Total Critical Care Time (in minutes): 40 Critical Care Statement: The care of this patient involved high complexity decision making to prevent further life threatening deterioration of the patient 's condition and/or to evaluate & treat vital organ system(s) failure or risk of failure.
[2017-06-12 00:48] LABS: ARTERIAL BLD GAS O2 SATURATION 98.8 % (90-98.9); ARTERIAL BLOOD GAS BASE EXCESS 3.4 meq/l (-2-2); ARTERIAL BLOOD GAS PCO2 40.2 mmHg (35-45); ARTERIAL BLOOD GAS pH 7.45 (7.35-7.45)
[2017-06-12 00:50] LABS: ALLENS TEST POSITIVE
[2017-06-12] MEDS: SODIUM CHLORIDE 1,000 ML IV SCH (01:37)
[2017-06-12] MEDS: TOBRAMYCIN 0.3% OPHTH SOLN 5 ML BOTTLE OU SCH ×4 (02:42→19:16)
[2017-06-12] MEDS: INSULIN SLIDING SCALE (NOVOLOG) 1 VIAL SQ SCH ×3 (06:36→16:55)
[2017-06-12] MEDS: CARBIDOPA/LEVODOPA 25/100 TABLET (FP) PO SCH ×2 (06:37→14:01)
[2017-06-12] MEDS: METOPROLOL TARTRATE 50 MG TABLET (FP) PO SCH ×2 (09:40→21:17)
[2017-06-12] MEDS: HEPARIN NA (PORCINE) 5,000 UNITS/ML 1ML VIAL SQ SCH ×2 (09:40→21:16)
[2017-06-12] MEDS: TAMSULOSIN HCL 0.4 MG CAP.ER.24H (FP) PO SCH (09:40)
--- NOTE | 2017-06-12 10:54 | PN ---
Progress Note, Physician Chief Complaint: Events noted pt had a brief episode of unresponsiveness yesterday was transferred to telemetry CT head- no acute CVA now hes awake and at baseline daughter at his side barium swallow test noted - Current Medication List Current Medications: Active Medications Atorvastatin Calcium (Lipitor -) 20 mg PO HS [facility] Last Admin: 06/11/17 22:57 Dose: 20 mg Carbidopa/Levodopa (Sinemet 25/100 -) 1 each PO TID [facility] Last Admin: 06/12/17 06:37 Dose: 1 each Heparin Sodium (Porcine) (Heparin -) 5,000 unit SQ BID [facility] Last Admin: 06/12/17 09:40 Dose: 5,000 unit Sodium Chloride (Normal Saline -) 1,000 mls @ 42 mls/hr IV ASDIR [facility] Last Admin: 06/12/17 01:37 Dose: 42 mls/hr Insulin Aspart (Novolog Vial Sliding Scale -) 1 vial SQ TIDAC [facility] PRN Reason: Protocol Last Admin: 06/12/17 06:36 Dose: Not Given Metoprolol Tartrate (Lopressor -) 50 mg PO BID [facility] Last Admin: 06/12/17 09:40 Dose: 50 mg Non-Formulary Medication (Memantine Hcl [Namenda Xr]) 14 mg PO DAILY [facility] Tamsulosin HCl (Flomax -) 0.4 mg PO DAILY@0830 [facility] Last Admin: 06/12/17 09:40 Dose: 0.4 mg Tobramycin Sulfate (Tobrex Ophthalmic Solution -) 1 drop OU Q6H [facility] Last Admin: 06/12/17 06:37 Dose: 1 drop - Objective Vital Signs: Vital Signs Temperature 98.2 F 06/12/17 08:24 Pulse Rate 79 06/12/17 08:24 Respiratory Rate 20 06/12/17 08:29 Blood Pressure 134/68 06/12/17 08:24 O2 Sat by Pulse Oximetry (%) 98 06/12/17 08:29 Constitutional: Yes: No Distress Cardiovascular: Yes: Regular Rate and Rhythm Respiratory: Yes: Diminished Gastrointestinal: Yes: Normal Bowel Sounds, Soft, Abdomen, Obese. No: Distention, Tenderness Edema: No Labs: CBC, BMP 06/11/17 08:00 06/11/17 08:00 INR, PTT INR 1.01 (0.82-1.09) 06/10/17 14:25 Problem List - Problems (1) Communicating hydrocephalus Code(s): G91.0 - COMMUNICATING HYDROCEPHALUS (2) Frequent falls Code(s): R29.6 - REPEATED FALLS (3) CAD (coronary artery disease) Code(s): I25.10 - ATHSCL HEART DISEASE OF [place] CORONARY ARTERY W/O ANG PCTRS (4) Diabetes Code(s): E11.9 - TYPE 2 DIABETES MELLITUS WITHOUT COMPLICATIONS Assessment/Plan PLAN AMS parkinsons disease Communicating hydrocephalus frequent falls unresponsive state -- blood cultures and urine culture negative --afebrile, not appears to be infectious source --CXR- noted -- Neurologist evaluated pt in AM per RN -- no further orders -- check carotid doppler, Echo -- Cardiology eval -- moving all extremities -- PT eval niddm-novolog sliding scale, d/c metformin [elevated lactic acid] CAD- trroponins trending down -BB hypomagnesemia- replace DVT ppx- Heparin sq
--- NOTE | 2017-06-12 16:58 | CON.CARD ---
Consult Consult Specialty:: cardiology Reason for Consultation:: shortness of breath - History of Present Illness Chief Complaint: Pt is talkative; says he fell yesterday (pt's and daughter , at bedside, dispute this); denies chest pain or dyspnea History of Present Illness: Mr. Riley is an 80-year-old white man (b[place]my [place]), with PM history of CAD (s/ p CABG 2 years prior), bioprosthetic aortic valve, diastolic CHF, HTN, diabetes , Parkinson's, dementia, ambulates with walker, who presents with worsening gait disorder over the past few days and was found down today by EMS. He has been progressively declining over the past two years since his CABG. The patient 's was attempting to help him out of his chair earlier this morning and he was unable to stand up. He only occasionally follows commands and is only AO x2 at baseline but has been only AOx1 as of late. The son states that he originally called EMS only to help lift the patient into the chair but they brought him into the ED after getting some more history. Denies fevers, chills, chest pain, abdominal pain, urinary/ fecal incontinence. 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 No: Tyrrell's Disease, [place]'s Disease, Hyperparathyroidism, Hyperthyroidism, Hypothyroidism, Osteopenia, SIADH, Other - Past Surgical History Past Surgical History: Yes: CABG - Alcohol/Substance Use Hx Alcohol Use: No - Smoking History Smoking history: Unknown if ever smoked Have you smoked in the past 12 months: No - Social History Usual Living Arrangement: With Spouse Place of : Other Home Medications - Allergies Allergies/Adverse Reactions: Allergies Allergy/AdvReac Type Severity Reaction Status Date / Time No Known Allergies Allergy Verified 03/14/16 13:33 - Home Medications Home Medications: Ambulatory Orders Metformin HCl [Glucophage -] 1,000 mg PO BID 02/11/12 Tamsulosin HCl [Flomax -] 0.4 mg PO DAILY 02/11/12 Simvastatin 40 mg PO HS #0 06/05/15 Acetaminophen [Tylenol] 650 mg PO Q6H #30 tablet 03/14/16 Carbidopa/Levodopa [Carbidopa-Levodopa 25-100 Tab] 1 each PO TID 03/14/16 Glimepiride [Amaryl -] 4 mg PO BID 03/14/16 Memantine HCl [Namenda Xr] 14 mg PO DAILY 03/14/16 Metoprolol Tartrate [Lopressor -] 50 mg PO BID 03/14/16 Family Disease History - Family Disease History Family History: Denies Review of Systems - Review of Systems Constitutional: reports: Weakness Neck: reports: Stiffness Cardiovascular: reports: No Symptoms Respiratory: reports: No Symptoms Gastrointestinal: reports: No Symptoms Genitourinary: reports: No Symptoms Breasts: reports: No Symptoms Reported Musculoskeletal: reports: Muscle Weakness Integumentary: reports: No Symptoms Neurological: reports: Confusion, Weakness Psychiatric: reports: Anxiety, Other - Risk Factors Known Risk Factors: Yes: Age, Gender, Hypercholesterolemia, Hypertension, Physical Inactivity, Other (CAD-->CABG; diastolic CHF) Vital Signs: Vital Signs Temperature 98.2 F 06/12/17 08:24 Pulse Rate 68 06/12/17 14:35 Respiratory Rate 20 06/12/17 14:35 Blood Pressure 114/61 06/12/17 14:35 O2 Sat by Pulse Oximetry (%) 98 06/12/17 08:29 Constitutional: Yes: Anxious Eyes: Yes: WNL HENT: Yes: WNL Neck: Yes: Decreased ROM Respiratory: Yes: Regular Gastrointestinal: Yes: Soft Renal/: No: Anuria Cardiovascular: Yes: Regular Rate and Rhythm Heart Sounds: Yes: S1, Split S2 Murmur: Yes: Systolic Murmur, Grade 2 Musculoskeletal: Yes: Muscle Weakness Extremities: Yes: Cool Edema: No Peripheral Pulses WNL: Yes Integumentary: Yes: WNL Neurological: Yes: Confusion, Weakness Psychiatric: Yes: Other - Other Data Labs, Other Data: CBC, BMP 06/11/17 08:00 06/11/17 08:00 INR, PTT INR 1.01 (0.82-1.09) 06/10/17 14:25 Abnormal Lab Results 06/12/17 00:34 ABG pO2 at Pt Temp 114.0 H ABG HCO3 27.2 H ABG Base Excess 3.4 H Echo: Report Reviewed (normal LVEF; abnormal diastolic compliance; bioprosthetic AoV; mild TR) Prior Cardiac Procedures: CABG Ejection Fraction %: LVEF > or = 40 % Imaging - Results EKG: Image Reviewed (NSR; LAE; LAFB; RBBB) Problem List - Problems (1) Hypomagnesemia Assessment/Plan: replete and f/u levels Code(s): E83.42 - HYPOMAGNESEMIA (2) Communicating hydrocephalus Assessment/Plan: f/u with neurologist Code(s): G91.0 - COMMUNICATING HYDROCEPHALUS (3) Dysphagia Code(s): R13.10 - DYSPHAGIA, UNSPECIFIED (4) Frequent falls Code(s): R29.6 - REPEATED FALLS (5) Afib Assessment/Plan: on metoprolol for HR control. Problematic using anticoagulant due to frequent falls. Code(s): I48.91 - UNSPECIFIED ATRIAL FIBRILLATION (6) Anemia Code(s): D64.9 - ANEMIA, UNSPECIFIED (7) Diabetes Code(s): E11.9 - TYPE 2 DIABETES MELLITUS WITHOUT COMPLICATIONS (8) HTN (hypertension) Assessment/Plan: On metoprolol. start ACEI (HTN; DM). Code(s): I10 - ESSENTIAL (PRIMARY) HYPERTENSION
--- NOTE | 2017-06-12 17:28 | CONSULT ---
Consult - text type - Consultation Consultation Note: NEUROLOGY CONSULTATION is greatly appreciated: Events reviewed and discussed with daughter, Keila. Patient examined this morning. This 81 yo RH man lives with his (caregiver). PMH sig for HTN, DM, ASHD, s/p CABG and AVR 3 yrs ago. AFib was discovered at that time and the patient was placed on Eliquis but was D /C'ed after bleeding in his leg. No A/C since. Patient began to display progressive neurological decline since the CABG, initially involving gait and later, cognition. Followed by Dr. He who gives Sinemet 25/100 TID and recently started Namenda XR (up to 14 mg). Pt had prior CT of head (06/03/15) and MRI of brain (02/29/16) both of which I have reviewed. They display moderate atrophy with marked ventricular enlargement , including the 3rd ventricle (suggesting a contribution from non-communicating hydrocephalus) and marked periventricular microvascular changes and /or periventricular edema/extravasation of CSF Recently, his deterioration has limited his mobility to the point where his cannot get him out of a chair. Keila denies incontinence. Admission CT (reviewed) continues to show ventricular enlargement with some progressio of the atrophy since . Last night Patient developed lethargy with right -sided weakness. CT of head was unchanged and symptoms resolved. Pt was transferred to telemetry. Stat Carotid Duplex this AM shows moderate atheromatous changes without significant hemodynamic changes. EXAM: No head trauma. No bruits. S/P sternotomy. Awake, alert. Ox [place]. No month or year. Cannot recall [facility] after 30 secs. + Glabella, snout, suck, grasps. Fluent confused speech. CN: Normal Motor: No drift. Normal strength. Brisk reflexes. B/L Babins[place]is. ++ Rest tremor (R>>L) with cogwheel rigidity. Sensory: Withdraws to pinch all fours. IMP: 1. Progressive neurological decline with features of Parkinsonism, dementia and serial neuroimages supporting hydrocephalus. 2. Possible Right cerebral TIA. Possible cardiogenic embolism due to AFib and AVR SUGGEST: Agree with telemetry. Cardiology consultation Re Anticoagulation. Neurosurgical consultation Re: Hydrocephalus. Increase L-Dopa to Sinemet CR 37.5/150 TID @ 7, 12, and 5 x 1 week then 50/200 TID at 7, 12, 5. Mobilize OO Bed to chair and PT for gait with walker. surgical services tech. Thank you very much, Gage Montgomery MD
[2017-06-12] MEDS: ATORVASTATIN CA 20 MG TABLET (FP) PO SCH (21:16)
[2017-06-12] MEDS: MEMANTINE HCL 5 MG TABLET (UD) PO SCH (21:16)
[2017-06-13] MEDS: TOBRAMYCIN 0.3% OPHTH SOLN 5 ML BOTTLE OU SCH ×4 (00:34→17:35)
[2017-06-13] MEDS: INSULIN SLIDING SCALE (NOVOLOG) 1 VIAL SQ SCH ×3 (06:09→17:36)
[2017-06-13 07:23] LABS: ANION GAP 8 (8-16); BLOOD UREA NITROGEN 15 mg/dL (7-18); CALCIUM 7.9 mg/dL (8.5-10.1); CHLORIDE 104 mmol/L (98-107); CO2 28 mmol/L (21-32); CREATININE 0.6 mg/dL (0.7-1.3); GLUCOSE,RANDOM 239 mg/dL (74-106); MAGNESIUM 1.8 mg/dL (1.8-2.4); POTASSIUM 4.3 mmol/L (3.5-5.1); SODIUM 140 mmol/L (136-145)
--- NOTE | 2017-06-13 09:19 | PN ---
Progress Note, Physician History of Present Illness: Mr. Riley is an 80-year-old white man (b. [place]), with PM history of CAD (s/ p CABG 2 years prior), bioprosthetic aortic valve, diastolic CHF, HTN, diabetes , Parkinson's, dementia, ambulates with walker, who presents with worsening gait disorder over the past few days and was found down today by EMS. He has been progressively declining over the past two years since his CABG. The patient 's was attempting to help him out of his chair earlier this morning and he was unable to stand up. He only occasionally follows commands and is only AO x2 at baseline but has been only AOx1 as of late. The son states that he originally called EMS only to help lift the patient into the chair but they brought him into the ED after getting some more history. Denies fevers, chills, chest pain, abdominal pain, urinary/ fecal incontinence. - Current Medication List Current Medications: Active Medications Atorvastatin Calcium (Lipitor -) 20 mg PO HS [facility] Last Admin: 06/12/17 21:16 Dose: 20 mg Carbidopa/Levodopa (Sinemet *Cr* 25/100 -) 0.5 combo PO 0700,1200,1700 [facility] Last Admin: 06/13/17 06:09 Dose: 0.5 combo Heparin Sodium (Porcine) (Heparin -) 5,000 unit SQ BID [facility] Last Admin: 06/12/17 21:16 Dose: 5,000 unit Insulin Aspart (Novolog Vial Sliding Scale -) 1 vial SQ TIDAC [facility] PRN Reason: Protocol Last Admin: 06/13/17 06:09 Dose: 4 units Memantine (Namenda -) 5 mg PO BID [facility] Last Admin: 06/12/17 21:16 Dose: 5 mg Metoprolol Tartrate (Lopressor -) 50 mg PO BID [facility] Last Admin: 06/12/17 21:17 Dose: 50 mg Tamsulosin HCl (Flomax -) 0.4 mg PO DAILY@0830 [facility] Last Admin: 06/12/17 09:40 Dose: 0.4 mg Tobramycin Sulfate (Tobrex Ophthalmic Solution -) 1 drop OU Q6H [facility] Last Admin: 06/13/17 06:08 Dose: 1 drop - Objective Vital Signs: Vital Signs Temperature 97.4 F L 06/13/17 06:00 Pulse Rate 66 06/13/17 06:00 Respiratory Rate 20 06/13/17 06:00 Blood Pressure 121/68 06/13/17 06:00 O2 Sat by Pulse Oximetry (%) 98 06/13/17 06:00 Eyes: Yes: WNL, Conjunctiva Clear, EOM Intact HENT: Yes: WNL, Atraumatic, Normocephalic Neck: Yes: WNL, Supple, Trachea Midline Cardiovascular: Yes: WNL, Regular Rate and Rhythm Respiratory: Yes: WNL, Regular, CTA Bilaterally Gastrointestinal: Yes: WNL, Normal Bowel Sounds Genitourinary: Yes: WNL Musculoskeletal: Yes: WNL Extremities: Yes: WNL Edema: No Integumentary: Yes: WNL ...Motor Strength: WNL Psychiatric: Yes: WNL Labs: CBC, BMP 06/11/17 08:00 06/13/17 05:05 INR, PTT INR 1.01 (0.82-1.09) 06/10/17 14:25 Assessment/Plan - Problems (1) Hypomagnesemia Assessment/Plan: replete and f/u levels Code(s): E83.42 - HYPOMAGNESEMIA (2) Communicating hydrocephalus Assessment/Plan: f/u with neurologist Code(s): G91.0 - COMMUNICATING HYDROCEPHALUS (3) Dysphagia Code(s): R13.10 - DYSPHAGIA, UNSPECIFIED (4) Frequent falls Code(s): R29.6 - REPEATED FALLS (5) Afib Assessment/Plan: on metoprolol for HR control. Problematic using anticoagulant due to frequent falls. Code(s): I48.91 - UNSPECIFIED ATRIAL FIBRILLATION (6) Anemia Code(s): D64.9 - ANEMIA, UNSPECIFIED (7) Diabetes Code(s): E11.9 - TYPE 2 DIABETES MELLITUS WITHOUT COMPLICATIONS (8) HTN (hypertension) Assessment/Plan: On metoprolol. start ACEI (HTN; DM). Code(s): I10 - ESSENTIAL (PRIMARY) HYPERTENSION
[2017-06-13] MEDS: METOPROLOL TARTRATE 50 MG TABLET (FP) PO SCH ×2 (09:35→21:22)
[2017-06-13] MEDS: MEMANTINE HCL 5 MG TABLET (UD) PO SCH ×2 (09:35→21:22)
[2017-06-13] MEDS: TAMSULOSIN HCL 0.4 MG CAP.ER.24H (FP) PO SCH (09:35)
[2017-06-13] MEDS: HEPARIN NA (PORCINE) 5,000 UNITS/ML 1ML VIAL SQ SCH ×2 (09:35→21:21)
--- NOTE | 2017-06-13 09:35 | PN ---
Progress Note (short form) - Note Progress Note: NEUROSURGERY CONSULT DICTATED H/o CAD s/p CABG, DM, Parkinson's. In ED with decreased gait, memory loss, and recent falls. Patient fell twice last week, most recent was in the bathtub 3 days ago. Unable to stand up. He only occasionally follows commands and is disoriented. Denies H/A, N/V, LOC, Sz, urinary incontinence previously. PE: 98.2, VSS HEENT- NC/AT; Neck- supple; Cor- RR; Lungs- CTA; Abd- benign; Ext- minimal ankle edema A/A/Ox1-2; speech slightly garbled; longer term memory appears intact CN- intact; Motor- increased tone/rigidity, at least 4/5 B UE/LE; Sensation- intact LT, decreased vibration; DTR- hyporeflexic, B toes upgoging Head CT (06-10 and 06-11)- moderate ventriculomegaly with marked periventricular vascular disease; mild-moderate atrophy; not significantly changed c/w prior MRI from 2015; no change between 2 CT scans MRI (2015)- moderate ventriculomegaly with marked small vessel dz; mild atrophy Given little change in imaging (MRI) from 2105, extensive periventrcular vascular disease, concurrent CAD/DM/Parkinson's, shunt will have lower success rate and not likely be well tolerated and with higher risks/complication rates including SDH No neurosurgical intervention recommended Rehab/nutritional support
--- NOTE | 2017-06-13 10:41 | CONS ---
DATE OF CONSULTATION: REQUESTING PHYSICIAN: Gage Montgomery MD CHIEF COMPLAINT: Ventriculomegaly. HISTORY OF PRESENT ILLNESS: The patient is an 81-year-old right-handed male with a history of Parkinson disease, diabetes, coronary artery disease status post bypass who presented with a 3-guqy-odznppy of worsening gait, memory loss, and recent falls. The patient had fallen twice last week and was unable to get up. He does follow commands, according to the family as well as today, but is sometimes disoriented. He currently denies any headache, nausea, vomiting, loss of consciousness, seizure activity, or urinary incontinence. The patient does recall having deteriorated in the last 2-3 years. PAST MEDICAL HISTORY: Significant for coronary artery disease status post bypass 2 years ago, diabetes, Parkinson disease. HOME MEDICATIONS: Include metformin, Flomax, simvastatin, Tylenol, carbidopa/levodopa, Amaryl, Namenda, metoprolol. ALLERGIES: There are no drug allergies. FAMILY HISTORY: Noncontributory. SOCIAL HISTORY: He does not smoke or drink. Upon questioning, he lives at home with his . REVIEW OF SYSTEMS: Otherwise negative for other major constitutional, head and neck, cardiovascular, pulmonary, gastrointestinal, genitourinary, endocrinologic, neurologic, or psychological problems except for the above. He has no fever, chills, or any recent infections specifically. PHYSICAL EXAMINATION: Vital Signs: Temperature 98.2, blood pressure 120/50, pulse rate 64, O2 saturation 98% on 2 L. HEENT: Shows this gentleman to be normocephalic, atraumatic, anicteric. Neck: Supple with no nuchal rigidity. No carotid bruits. Coronary: Demonstrates regular rhythm. The incision is healed. Abdomen: Benign. Extremities: Shows minimal edema in the ankles. Neurologic: He is awake, alert, and oriented x1-2. He follows commands and appears to have decent intermediate and remote memory. Short-term memory is more impaired. His speech is somewhat dysarthric. Cranial nerve examination is intact. Motor examination shows at least 4/5 strength of bilateral upper extremity. He does have increased tone of upper and lower extremities. Sensory examination is intact to light touch. Deep tendon reflexes are hyporeflexive throughout. Toes are upgoing bilaterally. Gait is not tested for safety reasons. LABORATORY: Shows white blood cell count 7.2, hemoglobin 14.3, platelet count 157,000, INR 1.01, PTT 29.7. Serum sodium 140, potassium 4.3, BUN 15, creatinine 0.6. Most recent glucose is 230. CT scan of the head from June 10 and June 11 were reviewed, and they both demonstrated moderate ventriculomegaly with vgkz-th-xwjcgnta cerebral atrophy. There is rxuvxcuq-ao-owfsog periventricular small vessel disease. MRI of the brain from February 2016 demonstrated similar ventriculomegaly with vvrshoah-dv-yndkkb periventricular small vessel disease and rzob-bn-xpxxcqme cerebral atrophy. There is no significant change. IMPRESSION: 1. Ventriculomegaly with possible normal-pressure hydrocephalus. 2. Extensive cerebrovascular disease. 3. Coronary artery disease status post bypass. 4. Parkinson disease. 5. Diabetes. RECOMMENDATION: The patient presents with a 2- to 7-nifi-bcpxhnf of progressive gait worsening. He denies any headache, nausea, vomiting, or any signs of increased intracranial pressure. He does have progressive difficulty with ambulation, which could be multifactorial in nature especially given his coronary artery disease, extensive intracranial periventricular disease as well as his diabetes and Parkinson disease. He will be high risk to undergo any invasive procedure such as a shunt placement given the above. Furthermore, there is no significant change of his brain imaging study from last year. Given all of the above, no new neurosurgical intervention is recommended at this time. The above was discussed with the patient at the bedside. RAYSA PACKER M.D. [facility]IANO/[id number]
--- NOTE | 2017-06-13 14:19 | PN ---
Progress Note (short form) - Note Progress Note: pt seen/ examined chart reviewed sitting in chair daughter at bedside comfotable dont remember me !! Vital Signs Temp 98.2 F 06/13/17 08:05 Pulse 64 06/13/17 08:05 Resp 16 06/13/17 09:00 BP 128/80 06/13/17 08:05 Pulse Ox 98 06/13/17 09:00 Intake & Output 06/12/17 06/13/17 06/13/17 23:59 11:59 23:59 Intake Total 310 160 Balance 310 160 Weight 170 lb 6.4 oz Intake: IV 10 10 SALINE LOCK 10 10 Oral 300 150 Other: Voiding Method Incontinent Incontinent # Unmeasured Voids Void 2 2 Bowel Movement No No Weight Measurement Method Patient Lift Scale CBC, BMP 06/11/17 08:00 06/13/17 05:05 Active Medications Atorvastatin Calcium (Lipitor -) 20 mg PO HS [facility] Last Admin: 06/12/17 21:16 Dose: 20 mg Carbidopa/Levodopa (Sinemet *Cr* 25/100 -) 0.5 combo PO 0700,1200,1700 [facility] Last Admin: 06/13/17 11:50 Dose: 0.5 combo Heparin Sodium (Porcine) (Heparin -) 5,000 unit SQ BID [facility] Last Admin: 06/13/17 09:35 Dose: 5,000 unit Insulin Aspart (Novolog Vial Sliding Scale -) 1 vial SQ TIDAC [facility] PRN Reason: Protocol Last Admin: 06/13/17 11:50 Dose: 8 units Memantine (Namenda -) 5 mg PO BID [facility] Last Admin: 06/13/17 09:35 Dose: 5 mg Metoprolol Tartrate (Lopressor -) 50 mg PO BID [facility] Last Admin: 06/13/17 09:35 Dose: 50 mg Tamsulosin HCl (Flomax -) 0.4 mg PO DAILY@0830 [facility] Last Admin: 06/13/17 09:35 Dose: 0.4 mg Tobramycin Sulfate (Tobrex Ophthalmic Solution -) 1 drop OU Q6H [facility] Last Admin: 06/13/17 11:51 Dose: 1 drop Microbiology 06/10/17 14:25 Blood Culture - Preliminary Blood - Peripheral Venous NO GROWTH OBTAINED AFTER 48 HOURS, INCUBATION TO CONTINUE FOR 3 DAYS. 06/10/17 14:25 Blood Culture - Preliminary Blood - Peripheral Venous NO GROWTH OBTAINED AFTER 48 HOURS, INCUBATION TO CONTINUE FOR 3 DAYS. Physical Exam Constitutional: Yes: No Distress. comfortable Cardiovascular: Yes: Regular Rate and Rhythm Respiratory: Yes: Diminished Gastrointestinal: Yes: Normal Bowel Sounds, Soft, Abdomen, Obese. No: Distention, Tenderness Edema: No Neuro- Awake Problem List - Problems (1) Communicating hydrocephalus Code(s): G91.0 - COMMUNICATING HYDROCEPHALUS (2) Frequent falls Code(s): R29.6 - REPEATED FALLS (3) CAD (coronary artery disease) Code(s): I25.10 - ATHSCL HEART DISEASE OF [place] CORONARY ARTERY W/O ANG PCTRS (4) Diabetes Code(s): E11.9 - TYPE 2 DIABETES MELLITUS WITHOUT COMPLICATIONS Assessment/Plan AMS parkinsons disease Communicating hydrocephalus frequent falls Dementia -- clinically stable -- meds reviewed -- continue present care -- add basal insulin. -- will need str -- discussed in detail with pts daughter. -- PT --will follow.
[2017-06-13] MEDS: INSULIN DETEMIR 100 UNITS/ML MDV SQ SCH ×2 (14:34→21:21)
[2017-06-13] MEDS: ATORVASTATIN CA 20 MG TABLET (FP) PO SCH (21:22)
[2017-06-14] MEDS: TOBRAMYCIN 0.3% OPHTH SOLN 5 ML BOTTLE OU SCH ×4 (00:19→18:09)
[2017-06-14] MEDS: INSULIN SLIDING SCALE (NOVOLOG) 1 VIAL SQ SCH ×3 (06:15→18:09)
--- NOTE | 2017-06-14 08:04 | PN ---
Progress Note (short form) - Note Progress Note: NEUROSURGERY Denies H/A, N/V Sitting up in bed Finished breakfast PE: AF, VSS HEENT- NC/AT; Neck- supple; Cor- RR; Lungs- CTA; Abd- benign; Ext- minimal ankle edema A/A/Ox1-2; speech slightly garbled; pleasant CN- intact; Motor- increased tone/rigidity, at least 4/5 B UE/LE; Sensation- intact LT, decreased vibration; DTR- hyporeflexic, B toes upgoging Head CT (06-10 and 06-11)- moderate ventriculomegaly with marked periventricular vascular disease; mild-moderate atrophy; not significantly changed c/w prior MRI from 2016; no change between 2 CT scans MRI (2015)- moderate ventriculomegaly with marked small vessel dz; mild atrophy Given little change in imaging findings (MRI from [address] admission), extensive periventrcular vascular disease, concurrent CAD/DM/Parkinson's, shunt will have lower success rate and with higher risks/complication rates including SDH No neurosurgical intervention recommended Rehab/nutritional support
--- NOTE | 2017-06-14 09:00 | PN ---
Progress Note, Physician History of Present Illness: Mr. Riley is an 80-year-old white man (b. [place]), with PM history of CAD (s/ p CABG 2 years prior), bioprosthetic aortic valve, diastolic CHF, HTN, diabetes , Parkinson's, dementia, ambulates with walker, who presents with worsening gait disorder over the past few days and was found down today by EMS. He has been progressively declining over the past two years since his CABG. The patient 's was attempting to help him out of his chair earlier this morning and he was unable to stand up. He only occasionally follows commands and is only AO x2 at baseline but has been only AOx1 as of late. The son states that he originally called EMS only to help lift the patient into the chair but they brought him into the ED after getting some more history. Denies fevers, chills, chest pain, abdominal pain, urinary/ fecal incontinence. - Current Medication List Current Medications: Active Medications Atorvastatin Calcium (Lipitor -) 20 mg PO HS [facility] Last Admin: 06/13/17 21:22 Dose: 20 mg Carbidopa/Levodopa (Sinemet *Cr* 25/100 -) 0.5 combo PO 0700,1200,1700 [facility] Last Admin: 06/14/17 06:15 Dose: 0.5 combo Heparin Sodium (Porcine) (Heparin -) 5,000 unit SQ BID [facility] Last Admin: 06/13/17 21:21 Dose: 5,000 unit Insulin Aspart (Novolog Vial Sliding Scale -) 1 vial SQ TIDAC [facility] PRN Reason: Protocol Last Admin: 06/14/17 06:15 Dose: 6 units Insulin Detemir (Levemir Vial) 10 units SQ [facility] Last Admin: 06/13/17 21:21 Dose: 10 units Memantine (Namenda -) 5 mg PO BID [facility] Last Admin: 06/13/17 21:22 Dose: 5 mg Metoprolol Tartrate (Lopressor -) 50 mg PO BID [facility] Last Admin: 06/13/17 21:22 Dose: 50 mg Tamsulosin HCl (Flomax -) 0.4 mg PO DAILY@0830 [facility] Last Admin: 06/13/17 09:35 Dose: 0.4 mg Tobramycin Sulfate (Tobrex Ophthalmic Solution -) 1 drop OU Q6H [facility] Last Admin: 06/14/17 06:16 Dose: 1 drop - Objective Vital Signs: Vital Signs Temperature 98.2 F 06/14/17 08:10 Pulse Rate 64 06/14/17 08:10 Respiratory Rate 16 06/14/17 08:10 Blood Pressure 108/58 06/14/17 08:10 O2 Sat by Pulse Oximetry (%) 95 06/13/17 21:00 Eyes: Yes: WNL, Conjunctiva Clear, EOM Intact HENT: Yes: WNL, Atraumatic, Normocephalic Neck: Yes: WNL, Supple, Trachea Midline Cardiovascular: Yes: WNL, Regular Rate and Rhythm Respiratory: Yes: WNL, Regular, CTA Bilaterally Gastrointestinal: Yes: WNL, Normal Bowel Sounds Genitourinary: Yes: WNL Musculoskeletal: Yes: WNL Extremities: Yes: WNL Edema: No Integumentary: Yes: WNL Neurological: Yes: WNL, Alert, Oriented ...Motor Strength: WNL Psychiatric: Yes: WNL Labs: CBC, BMP 06/11/17 08:00 06/13/17 05:05 INR, PTT INR 1.01 (0.82-1.09) 06/10/17 14:25 Assessment/Plan - Problems (1) Hypomagnesemia Assessment/Plan: replete and f/u levels Code(s): E83.42 - HYPOMAGNESEMIA (2) Communicating hydrocephalus Assessment/Plan: f/u with neurologist Code(s): G91.0 - COMMUNICATING HYDROCEPHALUS (3) Dysphagia Code(s): R13.10 - DYSPHAGIA, UNSPECIFIED (4) Frequent falls Code(s): R29.6 - REPEATED FALLS (5) Afib Assessment/Plan: on metoprolol for HR control. Problematic using anticoagulant due to frequent falls. Code(s): I48.91 - UNSPECIFIED ATRIAL FIBRILLATION (6) Anemia Code(s): D64.9 - ANEMIA, UNSPECIFIED (7) Diabetes Code(s): E11.9 - TYPE 2 DIABETES MELLITUS WITHOUT COMPLICATIONS (8) HTN (hypertension) Assessment/Plan: On metoprolol. start ACEI (HTN; DM). Code(s): I10 - ESSENTIAL (PRIMARY) HYPERTENSION
[2017-06-14] MEDS: TAMSULOSIN HCL 0.4 MG CAP.ER.24H (FP) PO SCH (10:12)
[2017-06-14] MEDS: METOPROLOL TARTRATE 50 MG TABLET (FP) PO SCH ×3 (10:12→22:13)
[2017-06-14] MEDS: MEMANTINE HCL 5 MG TABLET (UD) PO SCH ×2 (10:12→22:13)
[2017-06-14] MEDS: HEPARIN NA (PORCINE) 5,000 UNITS/ML 1ML VIAL SQ SCH ×2 (10:12→22:13)
[2017-06-14] MEDS ORDERED: INSULIN DETEMIR 100 UNITS/ML MDV SQ SCH (13:08)
--- NOTE | 2017-06-14 13:08 | PN ---
Progress Note (short form) - Note Progress Note: pt seen/ examined awake/ comfortable poor historian . denies pain. chronic ill appearance Vital Signs Temp 98.2 F 06/14/17 08:10 Pulse 64 06/14/17 08:10 Resp 16 06/14/17 08:10 BP 108/58 06/14/17 08:10 Pulse Ox 95 06/13/17 21:00 Intake & Output 06/13/17 06/14/17 06/14/17 23:59 11:59 23:59 Intake Total 460 0 300 Balance 460 0 300 Weight 171 lb 4 oz Intake: IV 10 0 SALINE LOCK 10 0 Oral 450 300 Other: Voiding Method Incontinent Toilet # Unmeasured Voids Void 2 2 Bowel Movement No No Weight Measurement Method Patient Lift Scale Active Medications Atorvastatin Calcium (Lipitor -) 20 mg PO HS [facility] Last Admin: 06/13/17 21:22 Dose: 20 mg Carbidopa/Levodopa (Sinemet *Cr* 25/100 -) 0.5 combo PO 0700,1200,1700 [facility] Last Admin: 06/14/17 12:51 Dose: 0.5 combo Heparin Sodium (Porcine) (Heparin -) 5,000 unit SQ BID [facility] Last Admin: 06/14/17 10:12 Dose: 5,000 unit Insulin Aspart (Novolog Vial Sliding Scale -) 1 vial SQ TIDAC [facility] PRN Reason: Protocol Last Admin: 06/14/17 12:51 Dose: 6 units Insulin Detemir (Levemir Vial) 10 units SQ [facility] Last Admin: 06/13/17 21:21 Dose: 10 units Memantine (Namenda -) 5 mg PO BID [facility] Last Admin: 06/14/17 10:12 Dose: 5 mg Metoprolol Tartrate (Lopressor -) 50 mg PO BID [facility] Last Admin: 06/14/17 12:00 Dose: 50 mg Tamsulosin HCl (Flomax -) 0.4 mg PO DAILY@0830 [facility] Last Admin: 06/14/17 10:12 Dose: 0.4 mg Tobramycin Sulfate (Tobrex Ophthalmic Solution -) 1 drop OU Q6H [facility] Last Admin: 06/14/17 12:51 Dose: 1 drop CBC, BMP 06/11/17 08:00 06/13/17 05:05 Microbiology 06/10/17 14:25 Blood Culture - Preliminary Blood - Peripheral Venous NO GROWTH OBTAINED AFTER 48 HOURS, INCUBATION TO CONTINUE FOR 3 DAYS. 06/10/17 14:25 Blood Culture - Preliminary Blood - Peripheral Venous NO GROWTH OBTAINED AFTER 48 HOURS, INCUBATION TO CONTINUE FOR 3 DAYS. Physical Exam Constitutional: Yes: No Distress. comfortable Cardiovascular: Yes: Regular Rate and Rhythm Respiratory: Yes: Diminished-- at bases Gastrointestinal: Yes: Normal Bowel Sounds, Soft, Abdomen, Obese. 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 -- daily oob - chair - overall condition gaurded - will follow - discharge planning
--- NOTE | 2017-06-14 14:42 | PN ---
Progress Note (short form) - Note Progress Note: NEUROLOGY FOLLOW-UP: Events reviewed. Patient examined. Dr. Mckeon's neurosurgical opinion read and appreciated. Med list suggests that Sinemet may have been reduced to 1/2 tablet TID rather than increased to 1 1/2 as ordered. Pt is awake, alert but extremely confused. reduction in tremor and cogwheel rigidity today IMP: Severe OMS Parkinonism (possibly Parkinson's disease) Although tremor and signs of PD are improved today it remains to be seen if this will be enough to allow the patient to be cared for at home by his . SUGGEST: Gradually increase L-Dopa as suggested in my consultation. Begin by resuming 25/100 TID @ 7, 12 5 Mobilize the patient OOB to chair and PT for gait with walker. [employer] consultation. Thank you very much, Gage Montgomery MD
[2017-06-14] MEDS: ATORVASTATIN CA 20 MG TABLET (FP) PO SCH (22:13)
[2017-06-15] MEDS: TOBRAMYCIN 0.3% OPHTH SOLN 5 ML BOTTLE OU SCH ×3 (00:27→12:12)
[2017-06-15] MEDS: INSULIN SLIDING SCALE (NOVOLOG) 1 VIAL SQ SCH ×3 (06:13→16:10)
[2017-06-15 06:39] LABS: BASO % 0.8 % (0-2.0); EOS % 2.9 % (0-4.5); HEMATOCRIT 37.3 % (35.4-49); LYMPH % 27.1 % (8-40); MCHC 34.9 g/dl (32.0-35.9); MEAN CELL VOLUME 91.9 fl (80-96); MEAN PLT VOLUME 9.3 fl (7.5-11.1); MONO % 7.8 % (3.8-10.2); NEUT % 61.4 % (42.8-82.8); PLATELET COUNT 144 K/MM3 (134-434); RBC 4.06 M/mm3 (4.00-5.60); WHITE BLOOD COUNT 7.1 K/mm3 (4.0-10.0)
[2017-06-15 07:07] LABS: ALBUMIN 2.7 g/dl (3.4-5.0); ANION GAP 6 (8-16); BLOOD UREA NITROGEN 9 mg/dL (7-18); CALCIUM 8.2 mg/dL (8.5-10.1); CHLORIDE 105 mmol/L (98-107); CO2 29 mmol/L (21-32); GLUCOSE,RANDOM 234 mg/dL (74-106); POTASSIUM 4.1 mmol/L (3.5-5.1); SGOT/AST 19 U/L (15-37); SGPT/ALT 18 U/L (12-78); SODIUM 140 mmol/L (136-145)
[2017-06-15 07:11] LABS: ALK PHOS 100 U/L (45-117); BILIRUBIN,TOTAL 0.4 mg/dL (0.2-1.0); CREATININE 0.6 mg/dL (0.7-1.3); TOT PROT 5.2 g/dl (6.4-8.2)
[2017-06-15] MEDS: TAMSULOSIN HCL 0.4 MG CAP.ER.24H (FP) PO SCH (08:23)
--- NOTE | 2017-06-15 09:41 | DS ---
Physical Examination Vital Signs: Vital Signs Temperature 97.9 F 06/15/17 07:42 Pulse Rate 61 06/15/17 07:42 Respiratory Rate 18 06/15/17 07:44 Blood Pressure 110/50 06/15/17 07:42 O2 Sat by Pulse Oximetry (%) 95 06/15/17 07:44 Labs: CBC, BMP 06/15/17 06:20 06/15/17 06:20 Discharge Summary Reason For Visit: COMMUNICATING HYDROCEPHALUS,RECURRENT FALLS Current Active Problems Communicating hydrocephalus (Acute) Conjunctivitis (Acute) DVT prophylaxis (Acute) Dysphagia (Acute) Frequent falls (Acute) HTN (hypertension) (Acute) Hypomagnesemia (Acute) - Instructions Referrals: Gage Montgomery MD [Staff Physician] - Leon Ortega MD [Primary Care Provider] - - Home Medications Comprehensive Discharge Medication List: Ambulatory Orders Metformin HCl [Glucophage -] 1,000 mg PO BID 02/11/12 Tamsulosin HCl [Flomax -] 0.4 mg PO DAILY 02/11/12 Simvastatin 40 mg PO HS #0 06/05/15 Acetaminophen [Tylenol] 650 mg PO Q6H #30 tablet 03/14/16 Carbidopa/Levodopa [Carbidopa-Levodopa 25-100 Tab] 1 each PO TID 03/14/16 Glimepiride [Amaryl -] 4 mg PO BID 03/14/16 Memantine HCl [Namenda Xr] 14 mg PO DAILY 03/14/16 Metoprolol Tartrate [Lopressor -] 50 mg PO BID 03/14/16
[2017-06-15] MEDS: MEMANTINE HCL 5 MG TABLET (UD) PO SCH (09:47)
[2017-06-15] MEDS: HEPARIN NA (PORCINE) 5,000 UNITS/ML 1ML VIAL SQ SCH (09:47)
[2017-06-15] MEDS: METOPROLOL TARTRATE 50 MG TABLET (FP) PO SCH (09:47)
--- NOTE | 2017-06-15 09:55 | PN ---
Progress Note (short form) - Note Progress Note: NEUROSURGERY Denies H/A, N/V Sitting up in bed No new complaint PE: AF, VSS HEENT- NC/AT; Neck- supple; Cor- RR; Lungs- CTA; Abd- benign; Ext- minimal ankle edema A/A/Ox1-2; speech slightly garbled; pleasant CN- intact; Motor- increased tone/rigidity, at least 4/5 B UE/LE; Sensation- intact LT, decreased vibration; DTR- hyporeflexic, B toes upgoging Head CT (06-10 and 06-11)- moderate ventriculomegaly with marked periventricular vascular disease; mild-moderate atrophy; not significantly changed c/w prior MRI from 2016; no significant change Ventrioculomegaly slightly out of proportion to atrophy Clinical picture complicated by extensive periventricular small vessel disease, Parkinson's No neurosurgical intervention recommended Rehab/nutritional support
[2017-06-15] MEDS ORDERED: METOPROLOL TARTRATE 25 MG TABLET (FP) PO SCH (10:20)
--- NOTE | 2017-06-15 11:46 | PN ---
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
--- NOTE | 2017-06-15 11:59 | PN ---
Progress Note, Physician History of Present Illness: Mr. Riley is an 80-year-old white man (b. [place]), with PM history of CAD (s/ p CABG 2 years prior), bioprosthetic aortic valve, diastolic CHF, HTN, diabetes , Parkinson's, dementia, ambulates with walker, who presents with worsening gait disorder over the past few days and was found down today by EMS. He has been progressively declining over the past two years since his CABG. The patient 's was attempting to help him out of his chair earlier this morning and he was unable to stand up. He only occasionally follows commands and is only AO x2 at baseline but has been only AOx1 as of late. The son states that he originally called EMS only to help lift the patient into the chair but they brought him into the ED after getting some more history. Denies fevers, chills, chest pain, abdominal pain, urinary/ fecal incontinence. - Current Medication List Current Medications: Active Medications Atorvastatin Calcium (Lipitor -) 20 mg PO HS [facility] Last Admin: 06/14/17 22:13 Dose: 20 mg Carbidopa/Levodopa (Sinemet *Cr* 25/100 -) 1 combo PO 0700,1200,1700 [facility] Last Admin: 06/15/17 06:12 Dose: 1 combo Heparin Sodium (Porcine) (Heparin -) 5,000 unit SQ BID [facility] Last Admin: 06/15/17 09:47 Dose: 5,000 unit Insulin Aspart (Novolog Vial Sliding Scale -) 1 vial SQ TIDAC [facility] PRN Reason: Protocol Last Admin: 06/15/17 11:45 Dose: 4 units Insulin Detemir (Levemir Vial) [address] [facility] Last Admin: 06/14/17 22:14 Dose: 14 units Memantine (Namenda -) 5 mg PO BID [facility] Last Admin: 06/15/17 09:47 Dose: 5 mg Metoprolol Tartrate (Lopressor -) 25 mg PO BID [facility] Tamsulosin HCl (Flomax -) 0.4 mg PO DAILY@0830 [facility] Last Admin: 06/15/17 08:23 Dose: 0.4 mg Tobramycin Sulfate (Tobrex Ophthalmic Solution -) 1 drop OU Q6H [facility] Last Admin: 06/15/17 06:12 Dose: 1 drop - Objective Vital Signs: Vital Signs Temperature 97.9 F 06/15/17 07:42 Pulse Rate 61 06/15/17 07:42 Respiratory Rate 18 06/15/17 07:44 Blood Pressure 110/50 06/15/17 07:42 O2 Sat by Pulse Oximetry (%) 95 06/15/17 07:44 Eyes: Yes: WNL, Conjunctiva Clear, EOM Intact HENT: Yes: WNL, Atraumatic, Normocephalic Neck: Yes: WNL, Supple, Trachea Midline Cardiovascular: Yes: WNL, Regular Rate and Rhythm Respiratory: Yes: WNL, Regular, CTA Bilaterally Gastrointestinal: Yes: WNL, Normal Bowel Sounds Genitourinary: Yes: WNL Musculoskeletal: Yes: WNL Extremities: Yes: WNL Edema: No Integumentary: Yes: WNL Neurological: Yes: WNL, Alert, Oriented ...Motor Strength: WNL Psychiatric: Yes: WNL Labs: CBC, BMP 06/15/17 06:20 06/15/17 06:20 INR, PTT INR 1.01 (0.82-1.09) 06/10/17 14:25 Assessment/Plan - Problems (1) Hypomagnesemia Assessment/Plan: replete and f/u levels Code(s): E83.42 - HYPOMAGNESEMIA (2) Communicating hydrocephalus Assessment/Plan: f/u with neurologist Code(s): G91.0 - COMMUNICATING HYDROCEPHALUS (3) Dysphagia Code(s): R13.10 - DYSPHAGIA, UNSPECIFIED (4) Frequent falls Code(s): R29.6 - REPEATED FALLS (5) Afib Assessment/Plan: on metoprolol for HR control. Problematic using anticoagulant due to frequent falls. Code(s): I48.91 - UNSPECIFIED ATRIAL FIBRILLATION (6) Anemia Code(s): D64.9 - ANEMIA, UNSPECIFIED (7) Diabetes Code(s): E11.9 - TYPE 2 DIABETES MELLITUS WITHOUT COMPLICATIONS (8) HTN (hypertension) Assessment/Plan: On metoprolol. start ACEI (HTN; DM). Code(s): I10 - ESSENTIAL (PRIMARY) HYPERTENSION
[2017-06-15] MEDS ORDERED: PT OWN MED DRAWER 7, Y5N ONE (13:10)
[2017-06-15 18:09] VITALS: BP 110/60; PULSE 81; TEMP 98.8
== END 2017-06-15 17:26 | DRG 57 ==
LOC: JER 12:58 → JERBED 21:09 → J5S 06-11 03:00 → J4W 06-11 23:48
PROVIDERS: ADMIT Internal Medicine; ATTEND Internal Medicine
DX: G20 Parkinson's disease (principal); G91.0 Communicating hydrocephalus; I50.30 Unspecified diastolic (congestive) heart failure; E87.2 Acidosis; E83.42 Hypomagnesemia; R13.10 Dysphagia, unspecified; R29.6 Repeated falls; I48.91 Unspecified atrial fibrillation; D64.9 Anemia, unspecified; F03.90 Unspecified dementia, unspecified severity, without behavioral disturbance, psychotic disturbance, mood disturbance, and anxiety; I25.10 Atherosclerotic heart disease of native coronary artery without angina pectoris; Z95.1 Presence of aortocoronary bypass graft; I11.0 Hypertensive heart disease with heart failure; E11.65 Type 2 diabetes mellitus with hyperglycemia; H10.9 Unspecified conjunctivitis
CPT/HCPCS: 36415; 36600; 70450-TC; 71010-TC; 73030-TC-LT; 73060-TC-LT; 74230-TC; 80048; 80053; 81003; 82550; 82553; 82607; 82803; 83036; 83605; 83735; 84100; 84484; 85025; 85610; 85730; 86850; 86900; 86901; 87040; 87086; 90688; 92611-GN; 93005; 93010; 93306-TC; 93880-TC; 95816; 97116-GP; 97161-GP; 99284-25; G0008; J1644

== ENCOUNTER 2020-01-19 16:03 | Emergency (ER) | payer OTHER ==
[2020-01-19] MEDS ORDERED: AMIODARONE HCL INJECTION 450 MG in DEXTROSE 5%-WATER - 241 ML IVPB ONE (16:13)
[2020-01-19] MEDS ORDERED: CALCIUM GLUCONATE 10% - 1,000 MG/10 ML VIAL ONE (16:17)
[2020-01-19] MEDS ORDERED: NOREPINEPHRINE D5W PREMIX 16,000 MCG/500 ML BAG IVPB SCH (16:45)
--- NOTE | 2020-01-19 17:25 | PDOC ---
Attending Attestation - Resident Resident Name: Ritika Armenta - ED Attending Attestation I have performed the following: I have examined & evaluated the patient, The case was reviewed & discussed with the resident, I agree w/resident's findings & plan, Exceptions are as noted - HPI HPI: 01/19/20 17:24 84yo M hx parkinsons dementia, hydrocephalus, CAD s/p CABG, diabetes presents to the ED in cardiac arrest. Per EMS, call was for SOB. On their arrival, pt unresponsive and asystolic. CPR was in progress by CHINTAN after 5 mins downtime. CPR continued by EMS, epi given. On pulse check, pt found to be in Vfib and was defibrillated and given amidarone. On subsequent pulse check, pt with ROSC, followed by bradycardia for which he got atropine and then cardiac arrest again. CPR continued with rhythm consistently PEA until arrival in the ED about 48 mins after their arrival to scene. During CPR en route, pt received 1 amp bicarb, epi x4, calcium 1G. FS in 500s. Pt was also intubated in the field. Per the patients daughter, his appetite has been poor for the last few days and this morning, pt had a fever and was lethargic. Daughter states pt otherwise had no complaints of CP, SOB, headahce, focal weakness/numbness, abd pain. No falls or trauma this AM. He was in his USOH yesterday which is AOx1, intermittently conversive of 1-2 words with gradual decline over the last year. - Physicial Exam PE: 01/19/20 17:38 GENERAL: Unresponsive, pale HEAD: No signs of trauma EYES: 2mm b/l, non responsive, midline ENT: Tube in place, confirmed by glidescope through cords. Minimal secretions in airway NECK: c-collar in place (per EMS to help secure airway, pt with no recent falls) LUNGS: Breath sounds equal, clear to auscultation bilaterally. HEART: Bradycardic but regular ABDOMEN: Soft, Non distended. Well healed midline scar EXTREMITIES: cold peripherally, no deformities NEUROLOGICAL: unresponsive - Critical Care Time Total Critical Care Time: 120 Critical Care Statement: The care of this patient involved high complexity decision making to prevent further life threatening deterioration of the patient's condition and/or to evaluate & treat vital organ system(s) failure or risk of failure. - Medical Decision Making 01/19/20 17:40 84yo M presents to the ED in cardiac arrest asystole -> vfib -> PEA in the field. Downtime at least 50 mins On arrival to ED, CPR continued with epi, on first pulse check, pt with ROSC EKG with poor baseline, but possible ST depression in V2, and laterally conc erning for posterior LA. Also appears to be in complete heart block Daughter at bedside, would like us to continue CPR but hold off on other interventions at this time such as transfer to lab tech She would like to wait until the pt's and rest of the family arrive In the meantime, amio gtt initiated for VF arrest, as well as fluids Pt with two episodes of bradycardia that responded to atropine Considered transcutaneous pacing, however daughter wanted to hold off on interventions until her mother arrived Pt had another episode of bradycardia -> asystole. CPR initiated, 1 epi given with ROSC after 1 round Family arrived and brought to bedside, updated about patients status, prolonged downtime and thus low likelihood of meaningful recovery After long discussion, pt's and family have decided pt is DNR/DNI and that he would not want to be on machines They request the tube removed and drips turned off They would like to maximize the patients comfort and agree to morphine pushes fo r comfort Tube removed with respiratory, all drips disconnected from patient. Monitor placed in comfort mode at 6pm Pt given 2 pushes of morphine for agonal breathing At 642pm, pt noted to be asystolic on the monitor. No palpable pulse. TOD called at 642PM with family at the bedside Will call ME Dr. Ortega called for certificate as he is PMD This clinical encounter is taking place during a federal and state health care emergency attributable to the novel [place] Virus pandemic. The Medical Director Occupational Health of the Department of Health and Human Services has declared, pursuant to the Public Health Service Act 319F-3 (42 U.S.C. 247d-6d), that a covered persons activities related to medical countermeasures against COVID-19 will be immune from liability under Federal and State law. Discharge - Discharge Information Problems reviewed: Yes Clinical Impression/Diagnosis: Cardiac arrest Condition: Disposition: - Follow up/Referral Referrals: Leon Ortega MD [Primary Care Provider] - - Patient Discharge Instructions - Post Discharge Activity
[2020-01-19 18:05] VITALS: PULSE 30
[2020-01-19 18:11] VITALS: BP 00/00; BMI 16.7
[2020-01-19] MEDS ORDERED: morphine SULFATE 4 MG/ML VIAL ONE (18:14)
[2020-01-19 18:16] LABS: ALBUMIN 2.1 g/dl (3.4-5.0); BILIRUBIN,TOTAL 0.7 mg/dL (0.2-1); BLOOD UREA NITROGEN 19.3 mg/dL (7-18); CALCIUM 9.6 mg/dL (8.5-10.1); CREATININE 1.2 mg/dL (0.55-1.3); MAGNESIUM 2.5 mg/dL (1.8-2.4); N-TERMINAL BNP 2085.4 pg/ml (5-450); TOT PROT 6.3 g/dl (6.4-8.2)
[2020-01-19 18:24] LABS: POTASSIUM 7.7 mmol/L (3.5-5.1)
[2020-01-19] MEDS ORDERED: ATROPINE SO4 0.4 MG/1 ML VIAL IVPUSH ONE ×2 (18:46)
[2020-01-19] MEDS ORDERED: CALCIUM GLUCONATE 10% - 1,000 MG/10 ML VIAL IVPUSH ONE (18:56)
--- NOTE | 2020-01-19 19:04 | PDOC ---
History of Present Illness - General Chief Complaint: Cardiac Arrest Stated Complaint: CARDIAC ARREST - History of Present Illness Initial Comments: 01/19/20 18:57 HPI: 84 y/o M hx of CAD s/p CABG, parkinsons, DM, HTN, HLD BIBEMS for witnessed drop syncope and became unresponsive. Patient down for 15min before EMS arrived after patient down for 15min. found to be in asystole then VFib and s/p defib. ROSC achieved with mily and recevied atropine. Then PEA, patient recevied amio, bicarb, calcium and 4 mg of epi. CPR continuing on arrival. Of note, patient with decreased appetite and ebergy over past couple days and reported SOB today PMHx: as noted above ROS: as noted SHx: Denies tobacco use; no alcohol use; no rec drugs Allergies: NKDA ROS: unable to obtain PE: GENERAL: unresponsive HEAD: No signs of trauma, normocephalic, atraumatic EYES: BL eyes fixed and unresponsive to light ENT: Auricles normal inspection, hearing grossly normal, nares patent, oropharynx clear without exudates. Moist mucosa NECK: Normal ROM, no lymphadenopathy LUNGS: intubated HEART: bradycardic ABDOMEN: Soft MUSCULOSKELETAL: normal tone NEUROLOGICAL: unresponsive SKIN: Warm, Dry, normal turgor, no rashes or lesions noted Past History - Medical History Allergies/Adverse Reactions: Allergies Allergy/AdvReac Type Severity Reaction Status Date / Time No Known Allergies Allergy Verified 03/14/16 13:33 Home Medications: Ambulatory Orders Tamsulosin HCl [Flomax -] 0.4 mg PO DAILY 02/11/12 Acetaminophen [Tylenol] 650 mg PO Q6H #30 tablet 03/14/16 Memantine HCl [Namenda Xr] 14 mg PO DAILY 03/14/16 Metoprolol Tartrate [Lopressor -] 50 mg PO BID 03/14/16 Atorvastatin Ca [Lipitor] 20 mg PO HS #30 tablet 06/15/17 Carbidopa/Levodopa *Cr* 25/100 [Sinemet *Cr* 25/100 -] 1 combo PO 0700,1200,1700 #21 tablet.er 06/15/17 Carbidopa/Levodopa *Cr* 50/200 [Sinemet *Cr* 50/200 -] 1 combo PO TID #90 tablet.er 06/15/17 Heparin - 5,000 unit SQ BID #7 vial 06/15/17 Insulin (Levemir) [Levemir Vial] 14 units SQ HS #60 ml 06/15/17 Metoprolol Tartrate [Lopressor -] 25 mg PO BID #60 tablet 06/15/17 Anemia: No Asthma: No Cancer: Yes (Colon Ca 1998) Cardiac Disorders: Yes (CAD, CABG) CVA: No COPD: No CHF: No Dementia: No Diabetes: Yes (1981) GI Disorders: No Disorders: No HTN: Yes Hypercholesterolemia: Yes Liver Disease: No Seizures: No Thyroid Disease: No - Surgical History Abdominal Surgery: Yes (1998 Colon Resection) Appendectomy: No Cardiac Surgery: Yes (CABG 2014) Cholecystectomy: No Lung Surgery: No Neurologic Surgery: No Orthopedic Surgery: No - Immunization History Immunization Up to Date: Yes - Psycho-Social/Smoking History Smoking History: Former smoker Have you smoked in the past 12 months: No Information on smoking cessation initiated: No - Substance Abuse Hx (Audit-C & DAST Scrn) How often the patient has a drink containing alcohol: Monthly or less Score: In Men: 4 or > Positive; In Women: 3 or > Positive: 1 Screen Result (Pos requires Nsg. Audit-10AR): Negative In the last yr the pt used illegal drug/Rx for NonMed reason: No Score: Yes response is considered Positive: 0 Screen Result (Positive result requires Nsg. DAST-10): Negative *Physical Exam - Vital Signs Last Vital Signs Temp Pulse Resp BP Pulse Ox 30 L 14 67/41 L 74 L 01/19/20 17:30 01/19/20 17:30 01/19/20 17:30 01/19/20 17:30 ED Treatment Course - LABORATORY CBC & Chemistry Diagram: 01/19/20 16:30 01/19/20 16:30 - ADDITIONAL ORDERS Additional order review: Laboratory Results 01/19/20 01/19/20 01/19/20 16:35 16:30 16:30 PT with INR INR PTT (Actin FS) Sodium Potassium Chloride Carbon Dioxide BUN Creatinine Est GFR (CKD-EPI)AfAm Est GFR (CKD-EPI)NonAf POC Glucometer 328 Random Glucose Lactic Acid Calcium Magnesium Ferritin 1726.8 H Total Bilirubin AST ALT Alkaline Phosphatase Creatine Kinase Creatine Kinase Index CK-MB (CK-2) Troponin I C-Reactive Protein B-Natriuretic Peptide Total Protein Albumin TSH Blood Type A NEGATIVE Antibody Screen Negative 01/19/20 01/19/20 01/19/20 16:30 16:30 16:30 PT with INR Cancelled INR Cancelled PTT (Actin FS) Cancelled Sodium 144 Potassium 7.7 H* Chloride 111 H Carbon Dioxide 18 L BUN 19.3 H Creatinine 1.2 Est GFR (CKD-EPI)AfAm 63.97 Est GFR (CKD-EPI)NonAf 55.20 POC Glucometer Random Glucose 414 H* Lactic Acid 13.0 H* Calcium 9.6 Magnesium 2.5 H Ferritin Total Bilirubin 0.7 AST 237 H ALT 72 H Alkaline Phosphatase 155 H Creatine Kinase 547 H Creatine Kinase Index 0.7 CK-MB (CK-2) 4.1 H Troponin I 0.15 H C-Reactive Protein 13.0 H B-Natriuretic Peptide 2085.4 H Total Protein 6.3 L Albumin 2.1 L TSH 2.25 D Blood Type Antibody Screen 01/19/20 01/19/20 16:35 16:30 RBC Cancelled MCV Cancelled MCHC Cancelled RDW Cancelled MPV Cancelled Neutrophils % Cancelled Lymphocytes % Cancelled Monocytes % Cancelled Eosinophils % Cancelled Basophils % Cancelled POC Glucometer 328 - Medications Given in the ED: ED Medications Discontinued Medications Generic Name Dose Route Start Last Admin Trade Name Bobby PRN Reason Stop Dose Admin Atropine Sulfate 0.4 mg 01/19/20 18:46 01/19/20 18:56 Atropine Injection - IVPUSH 01/19/20 18:47 0.4 mg ONCE ONE Administration Atropine Sulfate 0.4 mg 01/19/20 18:46 01/19/20 18:56 Atropine Injection - IVPUSH 01/19/20 18:47 0.4 mg ONCE ONE Administration Medical Decision Making - Medical Decision Making 01/19/20 19:01 84 y/o M hx of CAD s/p CABG, parkinsons, DM, HTN, HLD BIBEMS for witnessed drop syncope and became unresponsive. Patient down for 15min before EMS arrived after patient down for 15min. found to be in asystole then VFib and s/p defib. ROSC achieved with mily and recevied atropine. Then PEA, patient recevied amio, bicarb, calcium and 4 mg of epi. CPR continuing on arrival. Of note, patient with decreased appetite and ebergy over past couple days and reported SOB today total downtime 45-60 min. ROSC achieved after round of epi here. Received additional 2 rounds of atropine for mily. Amio drip started. Levo started. ivf started. POCUS with scatter b lines and decreased EF. No tamponade or pericardial effusion. No pleural effusion. no RV strain Pulses lost and ACLS intiaited. ROSC achieved after 1 round of epi. Family elected to withdraw care. time of 6:42pm ME made aware Discharge - Discharge Information Problems reviewed: Yes Clinical Impression/Diagnosis: Cardiac arrest Condition: - Follow up/Referral Referrals: Leon Ortega MD [Primary Care Provider] - - Patient Discharge Instructions - Post Discharge Activity
--- NOTE | 2020-01-20 13:43 | EKG ---
Test Reason : Blood Pressure : / mmHG Vent. Rate : 071 BPM Atrial Rate : 100 BPM P-R Int : 000 ms QRS Dur : 148 ms QT Int : 454 ms P-R-T Axes : 265 -68 100 degrees QTc Int : 493 ms UNUSUAL P AXIS, POSSIBLE ECTOPIC ATRIAL RHYTHM WITH A-V DISSOCIATION AND WIDE QRS RHYTHM LEFT AXIS DEVIATION RIGHT BUNDLE BRANCH BLOCK ABNORMAL ECG WHEN COMPARED WITH ECG OF 10-JUN-2017 15:12, WIDE QRS RHYTHM HAS REPLACED SINUS RHYTHM Confirmed by ELLY GUTIÉRREZ MD ([id number]) on 01/20/2020 1:43:04 PM Referred By: Confirmed By:ELLY GUTIÉRREZ MD
== END 2020-01-19 20:30 | disposition expired ==
LOC: JER 16:03
PROC: 5A12012 Performance of Cardiac Output, Single, Manual (ICD-10-PCS; principal; 2020-01-19)
DX: I46.9 Cardiac arrest, cause unspecified (principal)
CPT/HCPCS: 36415; 76604; 80053; 82550; 82553; 82728; 82962; 83605; 83615; 83735; 83880; 84443; 84484; 86140; 86850; 86900; 86901; 93005; 93010; 93308; 99291; 99292; U0003